=== PATIENT | male | born 1945 | race Caucasian/White ===

== ENCOUNTER 2021-05-01 18:56 | Emergency (ER) | payer MEDICARE ==
[~2021-05-01] VITALS: Ht 175.3 cm; Wt 122.3 kg
--- NOTE | 2021-05-01 19:11 | NUR ---
PT IS NOT COMPLAINING OF NECK PAIN. NO OBVIOUS HEAD TRAUMA. MD AT BEDSIDE ASSESSING PT. MD REMOVED PT'S C-COLLAR.
--- NOTE | 2021-05-01 19:30 | NUR ---
PT HAD A LARGE BOWEL MOVEMENT ON THE BED. HE REPORTS HE WAS HEADED TO THE BATHROOM WHEN HE FELL AT HOME. PT CLEANED UP, BED SHEET CHANGED, PT HAS NO PAIN COMPLAINTS AT PRESENT.
--- NOTE | 2021-05-01 21:25 | NUR ---
TECH IS GAIT TESTING PT
--- NOTE | 2021-05-01 23:13 | NUR ---
CALLED PT'S WITH PT'S PERMISSION. UPDATED HER ON PT'S CONDITION AND LET HER KNOW THAT HE IS BEING DISCHARGED. SHE IS OK WITH US SENDING HIM HOME VIA [facility]. SHE WILL BE WAITING FOR HIM AT HOME.
--- NOTE | 2021-05-01 23:14 | NUR ---
PT HAS PASSED GAIT TEST
[2021-05-01 23:29] VITALS: BP 144/62
[2021-05-04] MEDS ORDERED: METF-1203 PO (18:05)
[2021-05-04] MEDS ORDERED: LOVA40TA2 PO (18:05)
[2021-05-04] MEDS ORDERED: TERA5CAP4 PO (18:05)
[2021-05-04] MEDS ORDERED: GLIM4TAB7 PO (18:05)
[2021-05-04] MEDS ORDERED: LISI40TA13 PO (18:05)
[2021-05-04] MEDS ORDERED: ATEN100T PO (18:05)
[2021-05-04] MEDS ORDERED: AMLO5TAB16 PO (18:05)
[2021-05-04] MEDS ORDERED: ASPI-611 PO (18:05)
[2021-05-08] MEDS ORDERED: PRED10TA23 PO (09:27)
[2021-05-08] MEDS ORDERED: ALBU8.5H17 INH (09:27)
== END 2021-05-01 23:32 | disposition home or self-care (01) ==
LOC: ER 18:56
DX: S60.221A Contusion of right hand, initial encounter (principal); M79.641 Pain in right hand; E78.00 Pure hypercholesterolemia, unspecified; I12.9 Hypertensive chronic kidney disease with stage 1 through stage 4 chronic kidney disease, or unspecified chronic kidney disease; E11.22 Type 2 diabetes mellitus with diabetic chronic kidney disease; N18.9 Chronic kidney disease, unspecified; Z90.89 Acquired absence of other organs; Z86.73 Personal history of transient ischemic attack (TIA), and cerebral infarction without residual deficits; W19.XXXA Unspecified fall, initial encounter; Y93.89 Activity, other specified; Y92.89 Other specified places as the place of occurrence of the external cause; Y99.8 Other external cause status
CPT/HCPCS: 73130; 93005; 99284

== ENCOUNTER 2021-07-05 13:25 | Inpatient (IN) | payer MEDICARE ==
[~2021-07-05] VITALS: Ht 172.7 cm; Wt 126.5 kg
[~2021-07-05 13:25] MED LIST: ALBU8.5H17 INH; AMLO5TAB16 PO; ASPI-611 PO; ATEN100T PO; GLIM4TAB7 PO; LISI40TA13 PO; LOVA40TA2 PO; METF-1203 PO; TERA5CAP4 PO
[2021-07-05 15:11] LABS: BASOPHILS % (AUTO) 0.4 % (0-1); EOSINOPHILS % (AUTO) 0.5 % (0-6); HEMATOCRIT 29.6 % (42.0-52.0); HEMOGLOBIN 9.5 g/dl (14.0-17.9); LYMPHOCYTES # (AUTO) 0.7 X10'3 (1.1-4.8); LYMPHOCYTES % (AUTO) 8.7 % (21-51); MEAN CORPUSCULAR HEMOGLOBIN 27.5 PG (27.0-31.0); MEAN CORPUSCULAR HGB CONC 32.1 g/dL (33.0-36.5); MEAN CORPUSCULAR VOLUME 85.7 FL (78-98); MONOCYTES # (AUTO) 0.3 X10'3 (0-0.9); MONOCYTES % (AUTO) 4.1 % (2-12); NEUTROPHILS # (AUTO) 6.8 X10'3 (1.8-7.7); NEUTROPHILS % (AUTO) 86.3 % (42-75); PLATELET COUNT 84 X10'3 (140-440); RED BLOOD COUNT 3.45 X10'6 (4.70-6.10); RED CELL DISTRIBUTION WIDTH 17.5 % (11.5-14.5); WHITE BLOOD COUNT 7.9 X10'3 (4.5-11.0)
[2021-07-05 15:20] LABS: D-DIMER 0.48 MG/L FEU (0-0.50)
[2021-07-05 15:32] LABS: ALANINE AMINOTRANSFERASE 23 U/L (12-78); ALBUMIN 2.9 G/DL (3.4-5.0); ALBUMIN/GLOBULIN RATIO 0.8 (1.1-1.5); ALKALINE PHOSPHATASE 115 IU/L (46-116); ANION GAP 10 (8-16); ASPARTATE AMINO TRANSFERASE 11 U/L (10-37); BILIRUBIN,TOTAL 0.4 MG/DL (0.1-1.0); CALCIUM 8.6 MG/DL (8.5-10.1); CHLORIDE 102 MMOL/L (99-107); CREATININE 1.48 MG/DL (0.60-1.10); GLUCOSE 199 MG/DL (70-104); MAGNESIUM 1.6 MG/DL (1.5-2.4); POTASSIUM 4.8 MMOL/L (3.5-5.1); SODIUM 140 MMOL/L (135-145); TOTAL CARBON DIOXIDE 28.1 MMOL/L (24-32); TOTAL PROTEIN 6.5 G/DL (6.4-8.2); eGFR 46 ML/MIN
[2021-07-05 15:54] LABS: BLOOD UREA NITROGEN 38 MG/DL (7-18); BUN/CREATININE RATIO 25.7 (5.4-32.0)
[2021-07-05] MEDS ORDERED: CefTRIAXone/D5W-Rocephin 1gm 50 ML IV ONE (15:55)
[2021-07-05 16:37] LABS: C-REACTIVE PROTEIN 7.74 MG/DL (0.0-0.5); LACTATE DEHYDROGENASE 173 U/L (85-227)
[2021-07-05] MEDS ORDERED: HYDROcodone/acetaminophen 10/325mg tab PO PRN (17:40)
[2021-07-05] MEDS ORDERED: ALBUTEROL INHALER 1 PUFF/90 MCG INHALER IH PRN (17:40)
[2021-07-05] MEDS ORDERED: acetaminophen 325mg tablet PO PRN ×2 (17:40)
[2021-07-05] MEDS ORDERED: potassium CL 10mEq/100ml bag 100 ML IV PRN (17:40)
[2021-07-05] MEDS ORDERED: mag hydrox/Alum hydrox/simeth 30ml oral suspension PO PRN (17:40)
[2021-07-05] MEDS ORDERED: bisacodyl 10mg suppository rectal RC PRN (17:40)
[2021-07-05] MEDS ORDERED: HYDROcodone/acetaminophen 5mg/325mg tablet PO PRN (17:40)
[2021-07-05] MEDS ORDERED: morphine 2 MG/ML inj. syringe IV PRN ×2 (17:40)
[2021-07-05] MEDS ORDERED: MESSAGE TO PHARMACY PO ONE (17:40)
[2021-07-05] MEDS ORDERED: dextrose ORAL solution 15 GM/59 ML bottle PO PRN ×2 (17:40)
[2021-07-05] MEDS ORDERED: PERFLUTREN PROTEIN-A MICROSPHR (Optison) 0.22 MG/ML 3ML VIAL IV PRN (17:40)
[2021-07-05] MEDS ORDERED: dexamethasone 4mg/ml inj IV SCH (17:40)
[2021-07-05] MEDS ORDERED: magnesium 2GM in 50ml NS 50 ML IV PRN (17:40)
[2021-07-05] MEDS ORDERED: dextrose 50%-water 50ml dispensing syringe IV PRN ×2 (17:40)
[2021-07-05] MEDS ORDERED: magnesium hydroxide 30ml (MOM) UD suspension PO PRN (17:40)
[2021-07-05] MEDS ORDERED: potassium Cl 20 mEq SR tablet PO PRN ×2 (17:40)
[2021-07-05] MEDS ORDERED: magnesium Cl slow-release 64mg tablet PO PRN (17:40)
[2021-07-05] MEDS ORDERED: magnesium 4gm in 100ml NS 100 ML IV PRN (17:40)
[2021-07-05] MEDS ORDERED: glucagon, human recombinant 1mg kit SUBCUT PRN (17:40)
[2021-07-05] MEDS ORDERED: ondansetron/PF 4mg/2ml inj IV PRN (17:40)
[2021-07-05] MEDS ORDERED: acetaminophen 650mg rectal suppository RC PRN (17:40)
[2021-07-05 18:38] LABS: HEMOGLOBIN A1C 6.6 % (4.5-6.2)
[2021-07-05 18:51] LABS: CLARITY,URINE CLEAR (Clear); COLOR,URINE YELLOW (Yellow); GLUCOSE, URINE NEGATIVE (Neg); KETONES,URINE TRACE mg/dl (Neg); LEUKOCYTE ESTERASE ,URINE NEGATIVE (Neg); NITRITES, URINE NEGATIVE (Neg); OCCULT BLOOD,URINE NEGATIVE (Neg); PROTEIN,URINE NEGATIVE (Neg)
[2021-07-05 18:53] LABS: UA COLLECTION TYPE VOIDED
[2021-07-05] MEDS: azithromycin 250mg tablet PO SCH (19:03)
[2021-07-05] MEDS: dexamethasone inj 6 MG in dextrose 5%-water 100 ML IV SCH (19:04)
[2021-07-05] MEDS: K and/or MAG REPLACEMENT MC SCH (19:50)
[2021-07-05] MEDS: docusate sod 100mg capsule PO SCH (20:00)
[2021-07-05] MEDS: normal saline 1000ml 1,000 ML IV SCH (21:55)
[2021-07-05] MEDS: enoxaparin 40mg/0.4ml syringe SUBCUT SCH (21:58)
--- NOTE | 2021-07-05 22:15 | NUR ---
Report given to nurse on the receiving floor. Patient information discussed and background reviewed.
[2021-07-05 23:30] VITALS: BP 142/78
[2021-07-06] MEDS: insulin glargine (Lantus) pen - multi-dose SQ SCH ×2 (01:56→21:20)
[2021-07-06 02:00] VITALS: BP 138/75
[2021-07-06 06:00] VITALS: BP 89/56
[2021-07-06 07:31] LABS: BASOPHILS % (AUTO) 0.2 % (0-1); EOSINOPHILS % (AUTO) 0 % (0-6); HEMATOCRIT 30.8 % (42.0-52.0); LYMPHOCYTES # (AUTO) 0.4 X10'3 (1.1-4.8); LYMPHOCYTES % (AUTO) 4.6 % (21-51); MEAN CORPUSCULAR HEMOGLOBIN 27.8 PG (27.0-31.0); MEAN CORPUSCULAR HGB CONC 32.4 g/dL (33.0-36.5); MEAN CORPUSCULAR VOLUME 85.7 FL (78-98); MEAN PLATELET VOLUME 9.5 FL (7.4-10.4); MONOCYTES # (AUTO) 0.1 X10'3 (0-0.9); MONOCYTES % (AUTO) 0.7 % (2-12); NEUTROPHILS # (AUTO) 8.3 X10'3 (1.8-7.7); NEUTROPHILS % (AUTO) 94.5 % (42-75); PLATELET COUNT 98 X10'3 (140-440); RED BLOOD COUNT 3.59 X10'6 (4.70-6.10); RED CELL DISTRIBUTION WIDTH 17.5 % (11.5-14.5); WHITE BLOOD COUNT 8.7 X10'3 (4.5-11.0)
[2021-07-06 07:37] LABS: D-DIMER 0.54 MG/L FEU (0-0.50)
[2021-07-06 07:39] LABS: ALANINE AMINOTRANSFERASE 26 U/L (12-78); ALBUMIN 3.1 G/DL (3.4-5.0); ALBUMIN/GLOBULIN RATIO 0.9 (1.1-1.5); ALKALINE PHOSPHATASE 121 IU/L (46-116); ANION GAP 5 (8-16); ASPARTATE AMINO TRANSFERASE 16 U/L (10-37); BILIRUBIN,TOTAL 0.3 MG/DL (0.1-1.0); BLOOD UREA NITROGEN 44 MG/DL (7-18); BUN/CREATININE RATIO 30.1 (5.4-32.0); CALCIUM 8.6 MG/DL (8.5-10.1); CHLORIDE 103 MMOL/L (99-107); CREATININE 1.46 MG/DL (0.60-1.10); GLUCOSE 206 MG/DL (70-104); POTASSIUM 5.8 MMOL/L (3.5-5.1); SODIUM 138 MMOL/L (135-145); TOTAL CARBON DIOXIDE 29.6 MMOL/L (24-32); TOTAL PROTEIN 6.7 G/DL (6.4-8.2); eGFR 47 ML/MIN
[2021-07-06 07:42] LABS: C-REACTIVE PROTEIN 8.51 MG/DL (0.0-0.5); CHOL/HDL RATIO 2.3 (0.00-4.99); CHOLESTEROL 172 MG/DL (0-200); HDL CHOLESTEROL 75 MG/DL (35-60); LACTATE DEHYDROGENASE 195 U/L (85-227); LDL CHOLESTEROL 64 MG/DL (50-100); MAGNESIUM 1.9 MG/DL (1.5-2.4); PHOSPHORUS 5.8 MG/DL (2.3-4.5); TRIGLYCERIDES 84 MG/DL (20-135)
[2021-07-06] MEDS: enoxaparin 40mg/0.4ml syringe SUBCUT SCH ×2 (08:00→20:59)
[2021-07-06] MEDS: dexamethasone inj 6 MG in dextrose 5%-water 100 ML IV SCH ×2 (08:23→20:59)
--- NOTE | 2021-07-06 08:31 | NUR ---
Page to Dr Chowdhury Message: [phone] Chowdhury, platelets were 98 this morning. Do you want me to hold the Lovenox due at 0800? October, RN PCU et [phone]
[2021-07-06] MEDS: azithromycin 250mg tablet PO SCH (08:32)
[2021-07-06] MEDS: K and/or MAG REPLACEMENT MC SCH ×2 (08:34→20:00)
[2021-07-06] MEDS: docusate sod 100mg capsule PO SCH ×2 (08:34→20:58)
[2021-07-06] MEDS: insulin Lispro (HumaLOG) vial - multi-dose SQ SCH ×3 (10:38→21:18)
--- NOTE | 2021-07-06 11:54 | NUR ---
Message to Dr Chowdhury re [facility]: Message: [id number] Joss Chowdhury, FYI, Ekg done this am showed 2nd degree type 1 block. Thanks, October RN PCU ext [phone]
[2021-07-06 15:00] VITALS: BP 136/60
[2021-07-06] MEDS: CefTRIAXone/D5W-Rocephin 1gm 50 ML IV SCH (15:10)
[2021-07-06] MEDS ORDERED: ALBU8.5H17 IH (16:11)
[2021-07-06 18:00] VITALS: BP 133/57
--- NOTE | 2021-07-06 18:41 | NUR ---
Problems reprioritized. Patient report given, questions answered & plan of care reviewed with PAU Espinal.
[2021-07-06 22:00] VITALS: BP 134/55
[2021-07-06] MEDS ORDERED: sodium polystyrene sulfonate 15gm/60ml oral suspension PO ONE (23:05)
[2021-07-07] VITALS (7 sets, daily range): BP systolic 110–143; BP diastolic 50–62
[2021-07-07] MEDS: ALBUTEROL INHALER 1 PUFF/90 MCG INHALER IH SCH ×6 (02:57→21:58)
[2021-07-07 06:06] LABS: BASOPHILS % (AUTO) 0.3 % (0-1); EOSINOPHILS % (AUTO) 0 % (0-6); HEMATOCRIT 29.8 % (42.0-52.0); HEMOGLOBIN 9.5 g/dl (14.0-17.9); LYMPHOCYTES # (AUTO) 0.5 X10'3 (1.1-4.8); LYMPHOCYTES % (AUTO) 5.1 % (21-51); MEAN CORPUSCULAR HEMOGLOBIN 27.6 PG (27.0-31.0); MEAN CORPUSCULAR HGB CONC 31.9 g/dL (33.0-36.5); MEAN CORPUSCULAR VOLUME 86.4 FL (78-98); MEAN PLATELET VOLUME 9.6 FL (7.4-10.4); MONOCYTES # (AUTO) 0.2 X10'3 (0-0.9); NEUTROPHILS # (AUTO) 9.7 X10'3 (1.8-7.7); NEUTROPHILS % (AUTO) 92.6 % (42-75); PLATELET COUNT 125 X10'3 (140-440); RED BLOOD COUNT 3.45 X10'6 (4.70-6.10); RED CELL DISTRIBUTION WIDTH 17.4 % (11.5-14.5); WHITE BLOOD COUNT 10.5 X10'3 (4.5-11.0)
[2021-07-07 06:15] LABS: D-DIMER 0.53 MG/L FEU (0-0.50)
--- NOTE | 2021-07-07 06:16 | NUR ---
Problems reprioritized. pt reprt given, questions answered and plan of care reviewed with PAU Garcias.
[2021-07-07 06:48] LABS: ALANINE AMINOTRANSFERASE 39 U/L (12-78); ALBUMIN 2.9 G/DL (3.4-5.0); ALBUMIN/GLOBULIN RATIO 0.8 (1.1-1.5); ALKALINE PHOSPHATASE 108 IU/L (46-116); ANION GAP 6 (8-16); ASPARTATE AMINO TRANSFERASE 19 U/L (10-37); BILIRUBIN,TOTAL 0.2 MG/DL (0.1-1.0); BLOOD UREA NITROGEN 54 MG/DL (7-18); BUN/CREATININE RATIO 32.3 (5.4-32.0); C-REACTIVE PROTEIN 5.09 MG/DL (0.0-0.5); CALCIUM 8.4 MG/DL (8.5-10.1); CHLORIDE 103 MMOL/L (99-107); CREATININE 1.67 MG/DL (0.60-1.10); GLUCOSE 187 MG/DL (70-104); LACTATE DEHYDROGENASE 158 U/L (85-227); PHOSPHORUS 6.2 MG/DL (2.3-4.5); POTASSIUM 5.7 MMOL/L (3.5-5.1); SODIUM 139 MMOL/L (135-145); TOTAL PROTEIN 6.4 G/DL (6.4-8.2); eGFR 40 ML/MIN
[2021-07-07] MEDS: lactose-reduced food (Ensure Enlive) - 237ml bottle PO SCH ×5 (08:00→18:05)
[2021-07-07] MEDS: K and/or MAG REPLACEMENT MC SCH ×2 (08:00→20:00)
--- NOTE | 2021-07-07 08:42 | NUR ---
Joni consult: Tito easley/ joni 11, skin intact per EMR. Addendum: 07/07/21 at [address] Amended: Links added. Addendum: 07/07/21 at [address] BRITANY has reviewed and approves of above note.
[2021-07-07] MEDS ORDERED: albuterol 2.5 MG/3 ML nebule NEB PRN (08:55)
[2021-07-07] MEDS: enoxaparin 40mg/0.4ml syringe SUBCUT SCH ×2 (10:26→22:03)
[2021-07-07] MEDS: dexamethasone inj 6 MG in dextrose 5%-water 100 ML IV SCH ×2 (10:26→22:03)
[2021-07-07] MEDS: docusate sod 100mg capsule PO SCH ×2 (10:26→22:04)
[2021-07-07] MEDS: azithromycin 250mg tablet PO SCH (10:26)
[2021-07-07] MEDS: furosemide 20 MG/2 ML vial IV SCH ×2 (10:57→22:04)
[2021-07-07] MEDS: atenolol 50mg tablet PO SCH (10:58)
[2021-07-07] MEDS: lisinopril 20mg tablet PO SCH (10:58)
[2021-07-07] MEDS: aspirin 81mg, enteric-coated 1 TAB TABLET.DR PO SCH (10:59)
[2021-07-07] MEDS: atorvastatin 10mg tablet PO SCH (10:59)
[2021-07-07] MEDS: amLODIPine 5mg tablet PO SCH (10:59)
[2021-07-07] MEDS: insulin Lispro (HumaLOG) vial - multi-dose SQ SCH ×2 (11:06→14:56)
--- NOTE | 2021-07-07 13:18 | NUR ---
PRESSURE ULCER EDUCATION: DEFINITION: A pressure ulcer is an area of skin that breaks down when you stay in one position too long. The constant pressure against the skin reduces the blood flow to that area and the affected tissue dies. CAUSES: "Being bedridden or in a wheelchair "Fragile skin "Having a chronic condition, such as diabetes or vascular disease "Inability to move certain parts of your body without assistance "Older age "Incontinence of urine or stool SYMPTOMS: "A reddened area that DOES NOT turn white when pressed on - this can be the beginning of a pressure ulcer "A blister, deep sore or a crater - these can be advanced pressure ulcers FIRST AID: "Relieve the pressure on this area "Keep the area clean and dry "Call your primary doctor if you see any of the above symptoms "DO NOT massage the area "DO NOT use a donut shaped or ring shaped pillow- these actually interfere with the blood flow and cause complications PREVENTION: "Check for pressure ulcers everyday "Change position at least every two hours to relieve pressure "Use items that help relieve pressure- pillows, sheepskin, foam padding, and powders. "Keep skin clean and dry "Eat healthy well balanced meals "Exercise daily IF YOU SEE ANY OF THESE SYMPTOMS WHILE IN THE HOSPITAL - TELL YOUR NURSE IMMEDIATELY. IF YOU SEE ANY OF THESE SYMPTOMS WHILE AT HOME OR HAVE ANY QUESTIONS OR CONCERNS ABOUT PRESSURE ULCERS - CALL YOUR PRIMARY DOCTOR IMMEDIATELY. Addendum: 07/07/21 at 1321 by Yuko Horvath RN Amended: Links added.
--- NOTE | 2021-07-07 15:06 | NUR ---
Sent msg to respiratory that that pt was bumped to 15L high flow after desating to 86%.Pt is now at 95%. No distress noted. Will continue to monitor.
[2021-07-07] MEDS: CefTRIAXone/D5W-Rocephin 1gm 50 ML IV SCH (15:08)
[2021-07-07] MEDS: normal saline 1000ml 1,000 ML IV SCH (17:17)
--- NOTE | 2021-07-07 18:01 | NUR ---
Per Dr. Melgar, ordered Cpap for patient to help with his breathing. Pt states he does not use any breathing devices at home. Will continue to monitor.
--- NOTE | 2021-07-07 18:35 | NUR ---
Problems reprioritized. Patient report given, questions answered & plan of care reviewed with PAU Martino.
[2021-07-07] MEDS: insulin glargine (Lantus) pen - multi-dose SQ SCH (21:59)
[2021-07-07] MEDS: diphenhydrAMINE 25mg capsule PO PRN (22:03)
[2021-07-07] MEDS: terazosin 5mg capsule PO SCH (22:04)
[2021-07-08 02:00] VITALS: BP 117/50
[2021-07-08] MEDS: ALBUTEROL INHALER 1 PUFF/90 MCG INHALER IH SCH ×2 (02:59→07:40)
[2021-07-08 06:00] VITALS: BP 106/37
[2021-07-08 06:18] LABS: BASOPHILS % (AUTO) 0.2 % (0-1); EOSINOPHILS % (AUTO) 0 % (0-6); HEMATOCRIT 27.1 % (42.0-52.0); HEMOGLOBIN 8.5 g/dl (14.0-17.9); LYMPHOCYTES # (AUTO) 0.5 X10'3 (1.1-4.8); LYMPHOCYTES % (AUTO) 6.1 % (21-51); MEAN CORPUSCULAR HEMOGLOBIN 27.5 PG (27.0-31.0); MEAN CORPUSCULAR HGB CONC 31.4 g/dL (33.0-36.5); MEAN CORPUSCULAR VOLUME 87.5 FL (78-98); MEAN PLATELET VOLUME 9.2 FL (7.4-10.4); MONOCYTES # (AUTO) 0.2 X10'3 (0-0.9); MONOCYTES % (AUTO) 2.4 % (2-12); NEUTROPHILS # (AUTO) 7.5 X10'3 (1.8-7.7); NEUTROPHILS % (AUTO) 91.3 % (42-75); PLATELET COUNT 113 X10'3 (140-440); RED CELL DISTRIBUTION WIDTH 17.4 % (11.5-14.5); WHITE BLOOD COUNT 8.2 X10'3 (4.5-11.0)
[2021-07-08 06:23] LABS: D-DIMER 0.43 MG/L FEU (0-0.50)
[2021-07-08 06:54] LABS: ALANINE AMINOTRANSFERASE 46 U/L (12-78); ALBUMIN 2.7 G/DL (3.4-5.0); ALBUMIN/GLOBULIN RATIO 0.9 (1.1-1.5); ALKALINE PHOSPHATASE 98 IU/L (46-116); ANION GAP 4 (8-16); ASPARTATE AMINO TRANSFERASE 15 U/L (10-37); BILIRUBIN,TOTAL 0.1 MG/DL (0.1-1.0); BLOOD UREA NITROGEN 67 MG/DL (7-18); BUN/CREATININE RATIO 38.7 (5.4-32.0); C-REACTIVE PROTEIN 2.28 MG/DL (0.0-0.5); CALCIUM 7.8 MG/DL (8.5-10.1); CHLORIDE 103 MMOL/L (99-107); CREATININE 1.73 MG/DL (0.60-1.10); GLUCOSE 216 MG/DL (70-104); LACTATE DEHYDROGENASE 137 U/L (85-227); MAGNESIUM 2.2 MG/DL (1.5-2.4); PHOSPHORUS 5.5 MG/DL (2.3-4.5); POTASSIUM 5.4 MMOL/L (3.5-5.1); SODIUM 140 MMOL/L (135-145); TOTAL CARBON DIOXIDE 33.1 MMOL/L (24-32); TOTAL PROTEIN 5.7 G/DL (6.4-8.2); eGFR 38 ML/MIN
--- NOTE | 2021-07-08 07:05 | NUR ---
Patient in room PCU 3020. I have received report from Gunner and had the opportunity to ask questions and assume patient care.
[2021-07-08] MEDS: K and/or MAG REPLACEMENT MC SCH ×2 (08:00→20:00)
[2021-07-08] MEDS: azithromycin 250mg tablet PO SCH (09:29)
[2021-07-08] MEDS: docusate sod 100mg capsule PO SCH ×2 (09:29→21:13)
[2021-07-08] MEDS: atorvastatin 10mg tablet PO SCH (09:30)
[2021-07-08] MEDS: enoxaparin 40mg/0.4ml syringe SUBCUT SCH ×2 (09:30→21:12)
[2021-07-08] MEDS: atenolol 50mg tablet PO SCH (09:31)
[2021-07-08] MEDS: lisinopril 20mg tablet PO SCH (09:31)
[2021-07-08] MEDS: amLODIPine 5mg tablet PO SCH (09:32)
[2021-07-08] MEDS: furosemide 20 MG/2 ML vial IV SCH ×2 (09:32→21:13)
[2021-07-08] MEDS: aspirin 81mg, enteric-coated 1 TAB TABLET.DR PO SCH (09:32)
[2021-07-08] MEDS: dexamethasone inj 6 MG in dextrose 5%-water 100 ML IV SCH ×2 (09:34→21:14)
[2021-07-08] MEDS: insulin Lispro (HumaLOG) vial - multi-dose SQ SCH ×2 (09:42→14:47)
[2021-07-08] MEDS: lactose-reduced food (Ensure Enlive) - 237ml bottle PO SCH ×2 (09:42→18:35)
[2021-07-08 11:00] VITALS: BP 80/40
[2021-07-08] MEDS: albuterol 2.5 MG/3 ML nebule NEB SCH ×4 (11:09→23:29)
[2021-07-08 15:00] VITALS: BP 87/56
[2021-07-08] MEDS: CefTRIAXone/D5W-Rocephin 1gm 50 ML IV SCH (17:21)
[2021-07-08 18:00] VITALS: BP 87/56
--- NOTE | 2021-07-08 18:22 | NUR ---
Problems reprioritized. Patient report given, questions answered & plan of care reviewed with Gunner.
[2021-07-08] MEDS: terazosin 5mg capsule PO SCH (21:13)
[2021-07-08] MEDS: insulin glargine (Lantus) pen - multi-dose SQ SCH (21:30)
[2021-07-08 22:00] VITALS: BP 128/41
[2021-07-09 02:00] VITALS: BP 151/59
[2021-07-09] MEDS: albuterol 2.5 MG/3 ML nebule NEB SCH ×6 (03:15→22:53)
--- NOTE | 2021-07-09 06:18 | NUR ---
Patient in room PCU 3020. I have received report from Gunner and had the opportunity to ask questions and assume patient care.
[2021-07-09 06:48] LABS: BASOPHILS % (AUTO) 0.1 % (0-1); EOSINOPHILS % (AUTO) 0.1 % (0-6); HEMOGLOBIN 8.5 g/dl (14.0-17.9); LYMPHOCYTES # (AUTO) 0.6 X10'3 (1.1-4.8); LYMPHOCYTES % (AUTO) 7.6 % (21-51); MEAN CORPUSCULAR HEMOGLOBIN 27.4 PG (27.0-31.0); MEAN CORPUSCULAR HGB CONC 31.5 g/dL (33.0-36.5); MEAN CORPUSCULAR VOLUME 86.9 FL (78-98); MEAN PLATELET VOLUME 9.6 FL (7.4-10.4); MONOCYTES # (AUTO) 0.2 X10'3 (0-0.9); MONOCYTES % (AUTO) 3.4 % (2-12); NEUTROPHILS # (AUTO) 6.4 X10'3 (1.8-7.7); NEUTROPHILS % (AUTO) 88.8 % (42-75); PLATELET COUNT 112 X10'3 (140-440); RED BLOOD COUNT 3.11 X10'6 (4.70-6.10); RED CELL DISTRIBUTION WIDTH 17.9 % (11.5-14.5); WHITE BLOOD COUNT 7.2 X10'3 (4.5-11.0)
[2021-07-09 06:57] LABS: D-DIMER 0.44 MG/L FEU (0-0.50)
[2021-07-09 07:00] VITALS: BP 185/137
[2021-07-09 07:19] LABS: ALANINE AMINOTRANSFERASE 37 U/L (12-78); ALBUMIN 2.7 G/DL (3.4-5.0); ALBUMIN/GLOBULIN RATIO 0.9 (1.1-1.5); ALKALINE PHOSPHATASE 98 IU/L (46-116); ANION GAP 4 (8-16); ASPARTATE AMINO TRANSFERASE 9 U/L (10-37); BILIRUBIN,TOTAL 0.1 MG/DL (0.1-1.0); BLOOD UREA NITROGEN 83 MG/DL (7-18); BUN/CREATININE RATIO 46.4 (5.4-32.0); C-REACTIVE PROTEIN 1.36 MG/DL (0.0-0.5); CALCIUM 8.3 MG/DL (8.5-10.1); CHLORIDE 102 MMOL/L (99-107); CREATININE 1.79 MG/DL (0.60-1.10); GLUCOSE 235 MG/DL (70-104); LACTATE DEHYDROGENASE 133 U/L (85-227); MAGNESIUM 2.5 MG/DL (1.5-2.4); PHOSPHORUS 5.3 MG/DL (2.3-4.5); POTASSIUM 5.8 MMOL/L (3.5-5.1); SODIUM 138 MMOL/L (135-145); TOTAL CARBON DIOXIDE 32.2 MMOL/L (24-32); TOTAL PROTEIN 5.8 G/DL (6.4-8.2); eGFR 37 ML/MIN
[2021-07-09] MEDS: furosemide 20 MG/2 ML vial IV SCH ×2 (07:23→19:48)
[2021-07-09] MEDS: dexamethasone inj 6 MG in dextrose 5%-water 100 ML IV SCH ×2 (07:25→19:48)
[2021-07-09] MEDS: aspirin 81mg, enteric-coated 1 TAB TABLET.DR PO SCH (07:25)
[2021-07-09] MEDS: docusate sod 100mg capsule PO SCH ×2 (07:25→19:48)
[2021-07-09] MEDS: atorvastatin 10mg tablet PO SCH (07:26)
[2021-07-09] MEDS: atenolol 50mg tablet PO SCH (07:27)
[2021-07-09] MEDS: amLODIPine 5mg tablet PO SCH (07:27)
[2021-07-09] MEDS: lisinopril 20mg tablet PO SCH (07:28)
[2021-07-09] MEDS: enoxaparin 40mg/0.4ml syringe SUBCUT SCH ×2 (07:28→19:49)
[2021-07-09] MEDS: azithromycin 250mg tablet PO SCH (07:28)
[2021-07-09] MEDS: K and/or MAG REPLACEMENT MC SCH ×2 (07:41→18:45)
[2021-07-09] MEDS: lactose-reduced food (Ensure Enlive) - 237ml bottle PO SCH ×3 (08:17→18:08)
[2021-07-09] MEDS ORDERED: sodium polystyrene sulfonate 15gm/60ml oral suspension PO ONE (09:15)
[2021-07-09] MEDS: insulin Lispro (HumaLOG) vial - multi-dose SQ SCH ×3 (09:34→19:43)
--- NOTE | 2021-07-09 09:41 | NUR ---
Initial: Pt admit for acute respiratory failure likely d/t PNA, positive for COVID this admit. Pt on a heart healthy diet and overall eating well for age with average 63% PO intake of meals. Noted pt receiving an Ensure Enlive TIDWM and pt with 100% PO intake of all ONS with the exception of 50% PO intake of one ONS. Overall pt meeting estimated nutrient needs at this time. Noted patient's K, mag, and Phos are elevated. Will continue to monitor to assess need for renal diet. LBM 2/7 per I&O, receiving routine bowel care BID. No nutrition intervention implemented at this time. Will continue to follow and make recommendations as appropriate. Recommendations: 1) Liberalize to regular diet and utilize glycemic protocol for BG management; lipid panel WNL with A1c 6.6% 2) Monitor renal status and need for renal diet 3) Ensure Enlive TIDWM 4) Routine bowel care 5) Weekly scaled weights Addendum: 07/09/21 at [address] Amended: Links added.
[2021-07-09 10:00] VITALS: BP 185/137
[2021-07-09 11:00] VITALS: BP 86/30
[2021-07-09] MEDS: nystatin 15 GM powder TP SCH ×2 (13:05→21:01)
[2021-07-09] MEDS: CefTRIAXone/D5W-Rocephin 1gm 50 ML IV SCH (14:25)
[2021-07-09 15:00] VITALS: BP 104/61
[2021-07-09] MEDS: normal saline 1000ml 1,000 ML IV SCH (17:40)
[2021-07-09 18:00] VITALS: BP 152/65
[2021-07-09] MEDS: diphenhydrAMINE 25mg capsule PO PRN (19:56)
[2021-07-09] MEDS: terazosin 5mg capsule PO SCH (19:56)
[2021-07-09] MEDS: insulin glargine (Lantus) pen - multi-dose SQ SCH (21:01)
[2021-07-10 02:00] VITALS: BP 139/61
[2021-07-10] MEDS: albuterol 2.5 MG/3 ML nebule NEB SCH ×6 (02:35→23:49)
[2021-07-10 06:13] LABS: BASOPHILS % (AUTO) 0.3 % (0-1); EOSINOPHILS % (AUTO) 0 % (0-6); HEMATOCRIT 25.2 % (42.0-52.0); LYMPHOCYTES # (AUTO) 0.5 X10'3 (1.1-4.8); LYMPHOCYTES % (AUTO) 7.9 % (21-51); MEAN CORPUSCULAR HEMOGLOBIN 27.3 PG (27.0-31.0); MEAN CORPUSCULAR HGB CONC 31.9 g/dL (33.0-36.5); MEAN CORPUSCULAR VOLUME 85.6 FL (78-98); MEAN PLATELET VOLUME 9.8 FL (7.4-10.4); MONOCYTES # (AUTO) 0.2 X10'3 (0-0.9); MONOCYTES % (AUTO) 2.7 % (2-12); NEUTROPHILS # (AUTO) 6.1 X10'3 (1.8-7.7); NEUTROPHILS % (AUTO) 89.1 % (42-75); PLATELET COUNT 109 X10'3 (140-440); RED BLOOD COUNT 2.94 X10'6 (4.70-6.10); RED CELL DISTRIBUTION WIDTH 17.6 % (11.5-14.5); WHITE BLOOD COUNT 6.8 X10'3 (4.5-11.0)
[2021-07-10 06:29] LABS: D-DIMER 0.49 MG/L FEU (0-0.50)
[2021-07-10 06:41] LABS: ALANINE AMINOTRANSFERASE 34 U/L (12-78); ALBUMIN 2.5 G/DL (3.4-5.0); ALBUMIN/GLOBULIN RATIO 0.9 (1.1-1.5); ALKALINE PHOSPHATASE 80 IU/L (46-116); ANION GAP 2 (8-16); ASPARTATE AMINO TRANSFERASE 9 U/L (10-37); BILIRUBIN,TOTAL 0.1 MG/DL (0.1-1.0); BLOOD UREA NITROGEN 90 MG/DL (7-18); BUN/CREATININE RATIO 54.9 (5.4-32.0); C-REACTIVE PROTEIN 0.75 MG/DL (0.0-0.5); CALCIUM 8.3 MG/DL (8.5-10.1); CHLORIDE 103 MMOL/L (99-107); CREATININE 1.64 MG/DL (0.60-1.10); GLUCOSE 159 MG/DL (70-104); LACTATE DEHYDROGENASE 134 U/L (85-227); MAGNESIUM 2.5 MG/DL (1.5-2.4); PHOSPHORUS 5.1 MG/DL (2.3-4.5); POTASSIUM 5.5 MMOL/L (3.5-5.1); SODIUM 139 MMOL/L (135-145); TOTAL CARBON DIOXIDE 34.4 MMOL/L (24-32); TOTAL PROTEIN 5.3 G/DL (6.4-8.2); eGFR 41 ML/MIN
--- NOTE | 2021-07-10 06:41 | NUR ---
Patient in room PCU 3020. I have received report from Gunner and had the opportunity to ask questions and assume patient care.
[2021-07-10 07:00] VITALS: BP 153/54
[2021-07-10] MEDS: K and/or MAG REPLACEMENT MC SCH ×2 (08:00→20:00)
[2021-07-10] MEDS: azithromycin 250mg tablet PO SCH (08:28)
[2021-07-10] MEDS: enoxaparin 40mg/0.4ml syringe SUBCUT SCH ×2 (08:28→20:12)
[2021-07-10] MEDS: nystatin 15 GM powder TP SCH ×3 (08:28→20:20)
[2021-07-10] MEDS: furosemide 20 MG/2 ML vial IV SCH ×2 (08:28→20:13)
[2021-07-10] MEDS: atenolol 50mg tablet PO SCH (08:29)
[2021-07-10] MEDS: docusate sod 100mg capsule PO SCH ×2 (08:30→20:13)
[2021-07-10] MEDS: dexamethasone inj 6 MG in dextrose 5%-water 100 ML IV SCH ×2 (08:30→20:13)
[2021-07-10] MEDS: lisinopril 20mg tablet PO SCH (08:30)
[2021-07-10] MEDS: aspirin 81mg, enteric-coated 1 TAB TABLET.DR PO SCH (08:30)
[2021-07-10] MEDS: atorvastatin 10mg tablet PO SCH (08:30)
[2021-07-10] MEDS: amLODIPine 5mg tablet PO SCH (08:30)
[2021-07-10] MEDS: lactose-reduced food (Ensure Enlive) - 237ml bottle PO SCH ×3 (08:30→18:04)
[2021-07-10] MEDS: insulin Lispro (HumaLOG) vial - multi-dose SQ SCH ×2 (09:43→20:17)
[2021-07-10 11:00] VITALS: BP 130/55
[2021-07-10 15:00] VITALS: BP 140/58
[2021-07-10] MEDS: CefTRIAXone/D5W-Rocephin 1gm 50 ML IV SCH (16:29)
--- NOTE | 2021-07-10 16:31 | NUR ---
Patient was not medicated for 1200 blood sugar of 261mg/dl due to lunch tray not received till after 1500 and he finished eating at 1605 which was almost time for the next blood sugar check time. Plan of care will continue.
[2021-07-10 18:00] VITALS: BP 141/58
--- NOTE | 2021-07-10 18:37 | NUR ---
Problems reprioritized. Patient report given, questions answered & plan of care reviewed with Yajaira.
[2021-07-10] MEDS: terazosin 5mg capsule PO SCH (20:13)
[2021-07-10] MEDS: insulin glargine (Lantus) pen - multi-dose SQ SCH (20:19)
[2021-07-11 02:00] VITALS: BP 138/53
[2021-07-11] MEDS: albuterol 2.5 MG/3 ML nebule NEB SCH ×6 (03:26→23:33)
[2021-07-11 06:00] VITALS: BP 158/59
[2021-07-11] MEDS: lactose-reduced food (Ensure Enlive) - 237ml bottle PO SCH ×3 (08:00→18:14)
[2021-07-11] MEDS: K and/or MAG REPLACEMENT MC SCH ×2 (08:00→20:00)
[2021-07-11] MEDS: dexamethasone inj 6 MG in dextrose 5%-water 100 ML IV SCH ×2 (08:53→20:06)
[2021-07-11] MEDS: enoxaparin 40mg/0.4ml syringe SUBCUT SCH ×2 (08:55→19:58)
[2021-07-11] MEDS: furosemide 20 MG/2 ML vial IV SCH ×2 (08:58→19:59)
[2021-07-11] MEDS: docusate sod 100mg capsule PO SCH ×2 (08:58→19:58)
[2021-07-11] MEDS: amLODIPine 5mg tablet PO SCH (08:59)
[2021-07-11] MEDS: atenolol 50mg tablet PO SCH (09:00)
[2021-07-11] MEDS: azithromycin 250mg tablet PO SCH (09:00)
[2021-07-11] MEDS: lisinopril 20mg tablet PO SCH (09:00)
[2021-07-11] MEDS: atorvastatin 10mg tablet PO SCH (09:01)
[2021-07-11] MEDS: aspirin 81mg, enteric-coated 1 TAB TABLET.DR PO SCH (09:01)
[2021-07-11] MEDS: nystatin 15 GM powder TP SCH ×3 (09:03→20:16)
[2021-07-11] MEDS: insulin Lispro (HumaLOG) vial - multi-dose SQ SCH ×2 (09:18→13:38)
[2021-07-11 11:00] VITALS: BP 129/51
[2021-07-11 15:00] VITALS: BP 144/55
[2021-07-11] MEDS: CefTRIAXone/D5W-Rocephin 1gm 50 ML IV SCH (16:07)
--- NOTE | 2021-07-11 18:49 | NUR ---
Problems reprioritized. Patient report given, questions answered & plan of care reviewed with Malika.
[2021-07-11 19:00] VITALS: BP 148/58
[2021-07-11] MEDS: terazosin 5mg capsule PO SCH (20:16)
[2021-07-11] MEDS: insulin glargine (Lantus) pen - multi-dose SQ SCH (21:00)
[2021-07-12] VITALS: BP 139/55
[2021-07-12 02:00] VITALS: BP 138/59
[2021-07-12] MEDS: albuterol 2.5 MG/3 ML nebule NEB SCH ×6 (03:11→23:13)
[2021-07-12 06:00] VITALS: BP 129/49
--- NOTE | 2021-07-12 06:13 | NUR ---
Patient AOX3 He is incont of B/B. He has a BM times 2. Patient denies pain
[2021-07-12] MEDS: lactose-reduced food (Ensure Enlive) - 237ml bottle PO SCH ×3 (08:00→18:00)
[2021-07-12] MEDS: K and/or MAG REPLACEMENT MC SCH (08:00)
[2021-07-12] MEDS: azithromycin 250mg tablet PO SCH (09:17)
[2021-07-12] MEDS: lisinopril 20mg tablet PO SCH (09:18)
[2021-07-12] MEDS: nystatin 15 GM powder TP SCH ×3 (09:20→19:32)
[2021-07-12] MEDS: aspirin 81mg, enteric-coated 1 TAB TABLET.DR PO SCH (09:20)
[2021-07-12] MEDS: amLODIPine 5mg tablet PO SCH (09:20)
[2021-07-12] MEDS: atenolol 50mg tablet PO SCH (09:20)
[2021-07-12] MEDS: atorvastatin 10mg tablet PO SCH (09:20)
[2021-07-12] MEDS: docusate sod 100mg capsule PO SCH ×2 (09:21→19:32)
[2021-07-12] MEDS: dexamethasone inj 6 MG in dextrose 5%-water 100 ML IV SCH ×2 (09:21→19:31)
[2021-07-12] MEDS: enoxaparin 40mg/0.4ml syringe SUBCUT SCH ×2 (09:30→19:31)
[2021-07-12] MEDS: furosemide 20 MG/2 ML vial IV SCH ×2 (09:31→19:32)
[2021-07-12 11:00] VITALS: BP 126/48
[2021-07-12] MEDS: insulin Lispro (HumaLOG) vial - multi-dose SQ SCH ×3 (11:05→21:30)
[2021-07-12] MEDS: CefTRIAXone/D5W-Rocephin 1gm 50 ML IV SCH (15:34)
[2021-07-12 17:52] VITALS: BP 127/63
--- NOTE | 2021-07-12 18:37 | NUR ---
Problems reprioritized. Patient report given, questions answered & plan of care reviewed with Trena.
[2021-07-12] MEDS: terazosin 5mg capsule PO SCH (19:32)
[2021-07-12] MEDS: insulin glargine (Lantus) pen - multi-dose SQ SCH (21:31)
[2021-07-13 02:00] VITALS: BP 98/53
[2021-07-13] MEDS: albuterol 2.5 MG/3 ML nebule NEB SCH ×6 (02:57→22:39)
[2021-07-13 06:00] VITALS: BP 116/71
[2021-07-13] MEDS: atenolol 50mg tablet PO SCH (07:13)
[2021-07-13] MEDS: lisinopril 20mg tablet PO SCH (07:17)
[2021-07-13] MEDS: aspirin 81mg, enteric-coated 1 TAB TABLET.DR PO SCH (07:18)
[2021-07-13] MEDS: docusate sod 100mg capsule PO SCH ×2 (07:18→19:44)
[2021-07-13] MEDS: amLODIPine 5mg tablet PO SCH (07:18)
[2021-07-13] MEDS: furosemide 20 MG/2 ML vial IV SCH ×2 (07:18→19:44)
[2021-07-13] MEDS: atorvastatin 10mg tablet PO SCH (07:18)
[2021-07-13] MEDS: dexamethasone inj 6 MG in dextrose 5%-water 100 ML IV SCH ×2 (07:19→19:44)
[2021-07-13] MEDS: azithromycin 250mg tablet PO SCH (07:19)
[2021-07-13] MEDS: enoxaparin 40mg/0.4ml syringe SUBCUT SCH ×2 (07:19→19:44)
[2021-07-13] MEDS: nystatin 15 GM powder TP SCH ×3 (07:20→19:50)
[2021-07-13] MEDS: K and/or MAG REPLACEMENT MC SCH ×2 (08:00→20:00)
[2021-07-13] MEDS: lactose-reduced food (Ensure Enlive) - 237ml bottle PO SCH ×4 (08:00→19:08)
[2021-07-13] MEDS: insulin Lispro (HumaLOG) vial - multi-dose SQ SCH ×4 (09:25→21:31)
--- NOTE | 2021-07-13 09:53 | NUR ---
no lab page to PAGER ID: [phone] MESSAGE: Joss White 3020 doesn't have labs this morning. Not sure if they were needed. Alix CHAMBERS
[2021-07-13 11:00] VITALS: BP 134/49
[2021-07-13] MEDS ORDERED: guaiFENesin 200 MG/10 ML oral syrup UD cup PO PRN (14:55)
--- NOTE | 2021-07-13 14:56 | NUR ---
Verbal order Robitussin 100mg q6hrs for pt cough per Dr. Melgar telephone order. . Alix Click PCU
[2021-07-13 15:00] VITALS: BP 119/47
[2021-07-13] MEDS: CefTRIAXone/D5W-Rocephin 1gm 50 ML IV SCH (15:08)
[2021-07-13 16:14] LABS: OCCULT BLOOD STOOL NEGATIVE (Neg)
[2021-07-13] MEDS: terazosin 5mg capsule PO SCH (19:44)
[2021-07-13] MEDS: insulin glargine (Lantus) pen - multi-dose SQ SCH (21:30)
[2021-07-13 22:00] VITALS: BP 116/38
[2021-07-14 02:00] VITALS: BP 141/51
[2021-07-14] MEDS: albuterol 2.5 MG/3 ML nebule NEB SCH ×6 (02:49→23:10)
--- NOTE | 2021-07-14 05:47 | NUR ---
no new issues observed through the night. Patient kept his bipap on all night
[2021-07-14] MEDS: K and/or MAG REPLACEMENT MC SCH ×2 (08:00→20:00)
[2021-07-14] MEDS: amLODIPine 5mg tablet PO SCH (08:19)
[2021-07-14] MEDS: lisinopril 20mg tablet PO SCH (08:20)
[2021-07-14] MEDS: atorvastatin 10mg tablet PO SCH (08:20)
[2021-07-14] MEDS: aspirin 81mg, enteric-coated 1 TAB TABLET.DR PO SCH (08:20)
[2021-07-14] MEDS: docusate sod 100mg capsule PO SCH ×2 (08:20→19:41)
[2021-07-14] MEDS: azithromycin 250mg tablet PO SCH (08:20)
[2021-07-14] MEDS: atenolol 50mg tablet PO SCH (08:20)
[2021-07-14] MEDS: dexamethasone inj 6 MG in dextrose 5%-water 100 ML IV SCH ×2 (08:21→19:41)
[2021-07-14] MEDS: nystatin 15 GM powder TP SCH ×3 (08:21→21:00)
[2021-07-14] MEDS: furosemide 20 MG/2 ML vial IV SCH ×2 (08:21→19:41)
[2021-07-14] MEDS: enoxaparin 40mg/0.4ml syringe SUBCUT SCH ×2 (08:22→19:41)
[2021-07-14] MEDS: insulin Lispro (HumaLOG) vial - multi-dose SQ SCH ×3 (10:21→22:00)
[2021-07-14 10:25] LABS: BASOPHILS % (AUTO) 0.1 % (0-1); EOSINOPHILS % (AUTO) 0.3 % (0-6); HEMATOCRIT 30.4 % (42.0-52.0); HEMOGLOBIN 9.8 g/dl (14.0-17.9); LYMPHOCYTES # (AUTO) 0.7 X10'3 (1.1-4.8); LYMPHOCYTES % (AUTO) 8.5 % (21-51); MEAN CORPUSCULAR HEMOGLOBIN 27.4 PG (27.0-31.0); MEAN CORPUSCULAR HGB CONC 32.1 g/dL (33.0-36.5); MEAN CORPUSCULAR VOLUME 85.5 FL (78-98); MEAN PLATELET VOLUME 10.1 FL (7.4-10.4); MONOCYTES # (AUTO) 0.5 X10'3 (0-0.9); NEUTROPHILS # (AUTO) 6.8 X10'3 (1.8-7.7); NEUTROPHILS % (AUTO) 85.1 % (42-75); PLATELET COUNT 136 X10'3 (140-440); RED BLOOD COUNT 3.55 X10'6 (4.70-6.10)
[2021-07-14 10:36] LABS: ALANINE AMINOTRANSFERASE 40 U/L (12-78); ALBUMIN 2.8 G/DL (3.4-5.0); ALBUMIN/GLOBULIN RATIO 0.9 (1.1-1.5); ANION GAP 1 (8-16); ASPARTATE AMINO TRANSFERASE 19 U/L (10-37); BILIRUBIN,TOTAL 0.2 MG/DL (0.1-1.0); BLOOD UREA NITROGEN 105 MG/DL (7-18); CALCIUM 8.6 MG/DL (8.5-10.1); CHLORIDE 96 MMOL/L (99-107); CREATININE 1.59 MG/DL (0.60-1.10); GLUCOSE 329 MG/DL (70-104); POTASSIUM 5.5 MMOL/L (3.5-5.1); SODIUM 134 MMOL/L (135-145); TOTAL CARBON DIOXIDE 37.4 MMOL/L (24-32); eGFR 42 ML/MIN
[2021-07-14 11:00] VITALS: BP 126/61
[2021-07-14 11:12] LABS: ALKALINE PHOSPHATASE 83 IU/L (46-116)
[2021-07-14] MEDS: lactose-reduced food (Ensure Enlive) - 237ml bottle PO SCH (13:00)
[2021-07-14 15:00] VITALS: BP 153/62
--- NOTE | 2021-07-14 15:23 | NUR ---
Reassessment: Pt continues on Heart Healthy diet w/ mostly 75-100% intake of meals and ~78% of ONS meeting nutritional needs at this time. May consider changing to Renal diet as K and Phos seem to be elevated as well as BUN and creatinine. Recommend decreasing ONS frequency to Once daily as pt mostly meeting needs through meals alone. Pt currently on 7L oxygen and wears BiPAP at night per documentation. LBM 07/13 receiving routine colace. Will continue to monitor. Recommendations: 1) Consider Renal diet and utilize glycemic protocol for BG management; lipid panel WNL with A1c 6.6% 2) Ensure Enlive TIDWM; consider decreasing frequency 3) Routine bowel care 4) Weekly scaled weights Addendum: 07/14/21 at [address] Amended: Links added.
[2021-07-14] MEDS: CefTRIAXone/D5W-Rocephin 1gm 50 ML IV SCH (17:44)
[2021-07-14 18:00] VITALS: BP 162/54
[2021-07-14] MEDS: terazosin 5mg capsule PO SCH (19:41)
[2021-07-14] MEDS: insulin glargine (Lantus) pen - multi-dose SQ SCH (21:59)
[2021-07-14 22:00] VITALS: BP 149/56
[2021-07-15 02:00] VITALS: BP 149/59
[2021-07-15] MEDS: albuterol 2.5 MG/3 ML nebule NEB SCH ×6 (02:35→23:55)
[2021-07-15 06:00] VITALS: BP 142/60
[2021-07-15] MEDS: K and/or MAG REPLACEMENT MC SCH ×2 (08:00→19:09)
[2021-07-15] MEDS: dexamethasone inj 6 MG in dextrose 5%-water 100 ML IV SCH ×2 (08:01→20:48)
[2021-07-15] MEDS: lisinopril 20mg tablet PO SCH (08:04)
[2021-07-15] MEDS: atorvastatin 10mg tablet PO SCH (08:04)
[2021-07-15] MEDS: amLODIPine 5mg tablet PO SCH (08:04)
[2021-07-15] MEDS: atenolol 50mg tablet PO SCH (08:05)
[2021-07-15] MEDS: nystatin 15 GM powder TP SCH ×3 (08:06→21:02)
[2021-07-15] MEDS: aspirin 81mg, enteric-coated 1 TAB TABLET.DR PO SCH (08:06)
[2021-07-15] MEDS: furosemide 20 MG/2 ML vial IV SCH (08:06)
[2021-07-15] MEDS: enoxaparin 40mg/0.4ml syringe SUBCUT SCH ×2 (08:06→19:07)
[2021-07-15] MEDS: docusate sod 100mg capsule PO SCH ×2 (08:06→19:07)
[2021-07-15] MEDS ORDERED: sodium polystyrene sulfonate 15gm/60ml oral suspension PO ONE ×2 (09:25→17:45)
[2021-07-15] MEDS: insulin Lispro (HumaLOG) vial - multi-dose SQ SCH ×3 (09:37→19:03)
[2021-07-15 11:00] VITALS: BP 120/52
[2021-07-15 15:00] VITALS: BP 126/53
[2021-07-15] MEDS: CefTRIAXone/D5W-Rocephin 1gm 50 ML IV SCH (16:57)
[2021-07-15 18:00] VITALS: BP 132/41
[2021-07-15] MEDS: lactose-reduced food (Ensure Enlive) - 237ml bottle PO SCH (18:00)
[2021-07-15] MEDS: terazosin 5mg capsule PO SCH (20:49)
[2021-07-15] MEDS: insulin glargine (Lantus) pen - multi-dose SQ SCH (21:02)
[2021-07-15 22:00] VITALS: BP 115/50
[2021-07-16 02:00] VITALS: BP 111/56
[2021-07-16] MEDS: albuterol 2.5 MG/3 ML nebule NEB SCH ×6 (03:24→23:11)
[2021-07-16 06:00] VITALS: BP 152/61
[2021-07-16] MEDS: K and/or MAG REPLACEMENT MC SCH ×2 (08:00→18:33)
[2021-07-16] MEDS: dexamethasone inj 6 MG in dextrose 5%-water 100 ML IV SCH ×2 (08:00→19:04)
[2021-07-16] MEDS: lactose-reduced food (Ensure Enlive) - 237ml bottle PO SCH ×2 (08:00→18:28)
[2021-07-16] MEDS: furosemide 20 MG/2 ML vial IV SCH ×2 (08:00→08:43)
[2021-07-16] MEDS: nystatin 15 GM powder TP SCH ×3 (08:41→21:40)
[2021-07-16] MEDS: enoxaparin 40mg/0.4ml syringe SUBCUT SCH (08:41)
[2021-07-16] MEDS: amLODIPine 5mg tablet PO SCH (08:42)
[2021-07-16] MEDS: atorvastatin 10mg tablet PO SCH (08:42)
[2021-07-16] MEDS: aspirin 81mg, enteric-coated 1 TAB TABLET.DR PO SCH (08:42)
[2021-07-16] MEDS: lisinopril 20mg tablet PO SCH (08:42)
[2021-07-16] MEDS: atenolol 50mg tablet PO SCH (08:43)
[2021-07-16] MEDS: docusate sod 100mg capsule PO SCH ×2 (08:43→19:04)
[2021-07-16] MEDS: insulin Lispro (HumaLOG) vial - multi-dose SQ SCH ×2 (08:46→18:57)
[2021-07-16 09:50] LABS: BASOPHILS % (AUTO) 0.1 % (0-1); EOSINOPHILS % (AUTO) 0.3 % (0-6); HEMATOCRIT 29.9 % (42.0-52.0); HEMOGLOBIN 9.4 g/dl (14.0-17.9); LYMPHOCYTES # (AUTO) 0.7 X10'3 (1.1-4.8); LYMPHOCYTES % (AUTO) 7.3 % (21-51); MEAN CORPUSCULAR HGB CONC 31.5 g/dL (33.0-36.5); MEAN CORPUSCULAR VOLUME 85.7 FL (78-98); MEAN PLATELET VOLUME 10.2 FL (7.4-10.4); MONOCYTES # (AUTO) 0.6 X10'3 (0-0.9); MONOCYTES % (AUTO) 5.6 % (2-12); NEUTROPHILS # (AUTO) 8.8 X10'3 (1.8-7.7); NEUTROPHILS % (AUTO) 86.7 % (42-75); PLATELET COUNT 162 X10'3 (140-440); RED BLOOD COUNT 3.49 X10'6 (4.70-6.10); RED CELL DISTRIBUTION WIDTH 17.7 % (11.5-14.5); WHITE BLOOD COUNT 10.1 X10'3 (4.5-11.0)
[2021-07-16 10:47] LABS: ALANINE AMINOTRANSFERASE 40 U/L (12-78); ALBUMIN 2.7 G/DL (3.4-5.0); ALBUMIN/GLOBULIN RATIO 0.9 (1.1-1.5); ANION GAP 0 (8-16); ASPARTATE AMINO TRANSFERASE 18 U/L (10-37); BILIRUBIN,TOTAL 0.2 MG/DL (0.1-1.0); BLOOD UREA NITROGEN 101 MG/DL (7-18); BUN/CREATININE RATIO 59.4 (5.4-32.0); CALCIUM 8.6 MG/DL (8.5-10.1); CHLORIDE 99 MMOL/L (99-107); GLUCOSE 221 MG/DL (70-104); POTASSIUM 5.3 MMOL/L (3.5-5.1); SODIUM 139 MMOL/L (135-145); TOTAL CARBON DIOXIDE 39.6 MMOL/L (24-32); TOTAL PROTEIN 5.8 G/DL (6.4-8.2); eGFR 39 ML/MIN
[2021-07-16 11:00] VITALS: BP 147/50
[2021-07-16] MEDS ORDERED: sodium polystyrene sulfonate 15gm/60ml oral suspension PO ONE (12:55)
[2021-07-16 15:00] VITALS: BP 152/55
[2021-07-16] MEDS: insulin glargine (Lantus) pen - multi-dose SQ SCH (21:00)
[2021-07-16] MEDS: terazosin 5mg capsule PO SCH (22:21)
[2021-07-17] MEDS: albuterol 2.5 MG/3 ML nebule NEB SCH ×6 (02:40→23:06)
[2021-07-17 06:23] LABS: BASOPHILS % (AUTO) 0.1 % (0-1); EOSINOPHILS # (AUTO) 0.1 X10'3 (0-0.9); EOSINOPHILS % (AUTO) 1.5 % (0-6); HEMATOCRIT 26.4 % (42.0-52.0); HEMOGLOBIN 8.6 g/dl (14.0-17.9); LYMPHOCYTES # (AUTO) 1.4 X10'3 (1.1-4.8); LYMPHOCYTES % (AUTO) 19.5 % (21-51); MEAN CORPUSCULAR HEMOGLOBIN 27.3 PG (27.0-31.0); MEAN CORPUSCULAR HGB CONC 32.3 g/dL (33.0-36.5); MEAN CORPUSCULAR VOLUME 84.3 FL (78-98); MONOCYTES # (AUTO) 0.5 X10'3 (0-0.9); MONOCYTES % (AUTO) 7.3 % (2-12); NEUTROPHILS # (AUTO) 5.1 X10'3 (1.8-7.7); NEUTROPHILS % (AUTO) 71.6 % (42-75); PLATELET COUNT 137 X10'3 (140-440); RED BLOOD COUNT 3.13 X10'6 (4.70-6.10); RED CELL DISTRIBUTION WIDTH 17.7 % (11.5-14.5); WHITE BLOOD COUNT 7.1 X10'3 (4.5-11.0)
[2021-07-17 06:30] LABS: ALBUMIN 2.6 G/DL (3.4-5.0); ANION GAP -3 (8-16); BLOOD UREA NITROGEN 91 MG/DL (7-18); BUN/CREATININE RATIO 61.9 (5.4-32.0); CALCIUM 8.6 MG/DL (8.5-10.1); CHLORIDE 103 MMOL/L (99-107); CREATININE 1.47 MG/DL (0.60-1.10); GLUCOSE 93 MG/DL (70-104); POTASSIUM 4.5 MMOL/L (3.5-5.1); SODIUM 144 MMOL/L (135-145); eGFR 46 ML/MIN
[2021-07-17 06:35] LABS: TOTAL CARBON DIOXIDE 43.7 MMOL/L (24-32)
--- NOTE | 2021-07-17 07:00 | NUR ---
Pt Shay Coreas Rm 3020 CO2 43.7 Carl/RN 4560
[2021-07-17 07:15] VITALS: BP 127/46
[2021-07-17] MEDS: atenolol 50mg tablet PO SCH (08:00)
[2021-07-17] MEDS: K and/or MAG REPLACEMENT MC SCH ×2 (08:00→19:32)
[2021-07-17] MEDS: docusate sod 100mg capsule PO SCH ×2 (08:15→19:45)
[2021-07-17] MEDS: furosemide 20 MG/2 ML vial IV SCH (08:15)
[2021-07-17] MEDS: atorvastatin 10mg tablet PO SCH (08:16)
[2021-07-17] MEDS: aspirin 81mg, enteric-coated 1 TAB TABLET.DR PO SCH (08:16)
[2021-07-17] MEDS: amLODIPine 5mg tablet PO SCH (08:18)
[2021-07-17] MEDS: lisinopril 20mg tablet PO SCH (08:19)
[2021-07-17] MEDS: nystatin 15 GM powder TP SCH ×3 (08:20→21:24)
[2021-07-17] MEDS: enoxaparin 40mg/0.4ml syringe SUBCUT SCH (08:20)
[2021-07-17] MEDS: dexamethasone inj 6 MG in dextrose 5%-water 100 ML IV SCH ×2 (08:26→19:45)
[2021-07-17 08:58] LABS: ABG BASE EXCESS 14.2 mmol/L (-2.0-2.0); ABG HCO3 39.6 mmol/L (22.0-26.0); ABG OXYGEN SATURATION 89.2 % (94-97); ABG PCO2 (T) 55.2 mmHg (35.0-48.0); ABG PO2 (T) 58.1 mmHg (75.0-100.0); ALLEN'S TEST POSITIVE; FCOHb 0.3 % (0.0-3.9); FLOW 4 L/min; FMetHb 0.2 % (0.0-1.5); FO2Hb 88.8 % (94-97); TOTAL HEMOGLOBIN 9.9 G/dl (14.0-18.0)
--- NOTE | 2021-07-17 10:36 | NUR ---
Held atenolol for HR 55. Dr. Plasencia was notified.
[2021-07-17 11:00] VITALS: BP 119/48
[2021-07-17] MEDS: lactose-reduced food (Ensure Enlive) - 237ml bottle PO SCH ×3 (13:00→18:00)
[2021-07-17 15:00] VITALS: BP 144/46
[2021-07-17] MEDS: insulin Lispro (HumaLOG) vial - multi-dose SQ SCH ×3 (15:15→21:14)
[2021-07-17 18:00] VITALS: BP 157/62
--- NOTE | 2021-07-17 18:33 | NUR ---
Problems reprioritized. Patient report given, questions answered & plan of care reviewed with Brian/RN.
[2021-07-17] MEDS: terazosin 5mg capsule PO SCH (20:17)
[2021-07-17] MEDS: insulin glargine (Lantus) pen - multi-dose SQ SCH (21:16)
[2021-07-17 22:00] VITALS: BP 112/45
[2021-07-18 02:00] VITALS: BP 142/58
[2021-07-18] MEDS: albuterol 2.5 MG/3 ML nebule NEB SCH ×6 (03:18→23:24)
[2021-07-18 06:00] VITALS: BP 145/45
[2021-07-18 06:31] LABS: BASOPHILS % (AUTO) 0 % (0-1); EOSINOPHILS % (AUTO) 0 % (0-6); HEMATOCRIT 27.2 % (42.0-52.0); HEMOGLOBIN 8.8 g/dl (14.0-17.9); LYMPHOCYTES # (AUTO) 0.5 X10'3 (1.1-4.8); LYMPHOCYTES % (AUTO) 7.7 % (21-51); MEAN CORPUSCULAR HEMOGLOBIN 27.3 PG (27.0-31.0); MEAN CORPUSCULAR HGB CONC 32.2 g/dL (33.0-36.5); MEAN CORPUSCULAR VOLUME 84.6 FL (78-98); MEAN PLATELET VOLUME 9.9 FL (7.4-10.4); MONOCYTES # (AUTO) 0.3 X10'3 (0-0.9); MONOCYTES % (AUTO) 3.9 % (2-12); NEUTROPHILS # (AUTO) 5.9 X10'3 (1.8-7.7); NEUTROPHILS % (AUTO) 88.4 % (42-75); PLATELET COUNT 141 X10'3 (140-440); RED BLOOD COUNT 3.21 X10'6 (4.70-6.10); RED CELL DISTRIBUTION WIDTH 17.9 % (11.5-14.5); WHITE BLOOD COUNT 6.6 X10'3 (4.5-11.0)
[2021-07-18 06:39] LABS: ALBUMIN 2.6 G/DL (3.4-5.0); ANION GAP 1 (8-16); BLOOD UREA NITROGEN 83 MG/DL (7-18); BUN/CREATININE RATIO 59.3 (5.4-32.0); CALCIUM 8.3 MG/DL (8.5-10.1); CHLORIDE 106 MMOL/L (99-107); GLUCOSE 123 MG/DL (70-104); POTASSIUM 4.3 MMOL/L (3.5-5.1); SODIUM 146 MMOL/L (135-145); TOTAL CARBON DIOXIDE 39.5 MMOL/L (24-32); eGFR 49 ML/MIN
[2021-07-18] MEDS: K and/or MAG REPLACEMENT MC SCH ×2 (08:00→18:42)
[2021-07-18] MEDS: lactose-reduced food (Ensure Enlive) - 237ml bottle PO SCH ×2 (08:17→18:39)
[2021-07-18] MEDS: dexamethasone inj 6 MG in dextrose 5%-water 100 ML IV SCH (08:18)
[2021-07-18] MEDS: furosemide 20 MG/2 ML vial IV SCH (08:18)
[2021-07-18] MEDS: docusate sod 100mg capsule PO SCH ×2 (08:22→18:43)
[2021-07-18] MEDS: aspirin 81mg, enteric-coated 1 TAB TABLET.DR PO SCH (08:23)
[2021-07-18] MEDS: atorvastatin 10mg tablet PO SCH (08:24)
[2021-07-18] MEDS: amLODIPine 5mg tablet PO SCH (08:30)
[2021-07-18] MEDS: atenolol 50mg tablet PO SCH (08:32)
[2021-07-18] MEDS: lisinopril 20mg tablet PO SCH (08:33)
[2021-07-18] MEDS: enoxaparin 40mg/0.4ml syringe SUBCUT SCH (08:36)
[2021-07-18] MEDS: nystatin 15 GM powder TP SCH ×3 (08:36→21:23)
[2021-07-18] MEDS: insulin Lispro (HumaLOG) vial - multi-dose SQ SCH ×3 (10:59→21:19)
[2021-07-18 11:00] VITALS: BP 139/53
[2021-07-18 15:28] VITALS: BP 121/41
[2021-07-18] MEDS ORDERED: DEXTROSE 15 GM of carb/4 tabs (each vial/BOTTLE has 4 tablets) PO PRN ×2 (15:55)
[2021-07-18] MEDS ORDERED: dextrose ORAL solution 15 GM/59 ML bottle PO PRN (15:55)
--- NOTE | 2021-07-18 18:31 | NUR ---
Problems reprioritized. Patient report given, questions answered & plan of care reviewed with Edwig.
[2021-07-18 18:35] VITALS: BP 107/57
[2021-07-18] MEDS: dexamethasone inj 6 MG in dextrose 5%-water 50ml 50 ML IV SCH (19:03)
[2021-07-18] MEDS: terazosin 5mg capsule PO SCH (21:14)
[2021-07-18] MEDS: insulin glargine (Lantus) pen - multi-dose SQ SCH (21:22)
[2021-07-18 22:00] VITALS: BP 124/45
[2021-07-19] VITALS (7 sets, daily range): BP systolic 117–138; BP diastolic 35–63
[2021-07-19] MEDS: albuterol 2.5 MG/3 ML nebule NEB SCH ×5 (03:45→23:06)
[2021-07-19 05:55] LABS: BASOPHILS % (AUTO) 0 % (0-1); EOSINOPHILS % (AUTO) 0 % (0-6); HEMATOCRIT 25.5 % (42.0-52.0); HEMOGLOBIN 8.3 g/dl (14.0-17.9); LYMPHOCYTES # (AUTO) 0.5 X10'3 (1.1-4.8); LYMPHOCYTES % (AUTO) 7.5 % (21-51); MEAN CORPUSCULAR HEMOGLOBIN 27.5 PG (27.0-31.0); MEAN CORPUSCULAR HGB CONC 32.6 g/dL (33.0-36.5); MEAN CORPUSCULAR VOLUME 84.4 FL (78-98); MEAN PLATELET VOLUME 10.2 FL (7.4-10.4); MONOCYTES # (AUTO) 0.3 X10'3 (0-0.9); MONOCYTES % (AUTO) 5.2 % (2-12); NEUTROPHILS # (AUTO) 5.8 X10'3 (1.8-7.7); NEUTROPHILS % (AUTO) 87.3 % (42-75); PLATELET COUNT 157 X10'3 (140-440); RED BLOOD COUNT 3.02 X10'6 (4.70-6.10); RED CELL DISTRIBUTION WIDTH 17.5 % (11.5-14.5); WHITE BLOOD COUNT 6.7 X10'3 (4.5-11.0)
[2021-07-19 06:10] LABS: ALBUMIN 2.5 G/DL (3.4-5.0); ANION GAP 3 (8-16); BLOOD UREA NITROGEN 80 MG/DL (7-18); BUN/CREATININE RATIO 57.1 (5.4-32.0); CALCIUM 8.3 MG/DL (8.5-10.1); CHLORIDE 103 MMOL/L (99-107); GLUCOSE 160 MG/DL (70-104); POTASSIUM 3.8 MMOL/L (3.5-5.1); SODIUM 145 MMOL/L (135-145); TOTAL CARBON DIOXIDE 39.2 MMOL/L (24-32); eGFR 49 ML/MIN
--- NOTE | 2021-07-19 06:42 | NUR ---
Problems reprioritized. Patient report given, questions answered & plan of care reviewed with PAU aGrcias.
[2021-07-19] MEDS: lactose-reduced food (Ensure Enlive) - 237ml bottle PO SCH ×2 (08:00→13:00)
[2021-07-19] MEDS: K and/or MAG REPLACEMENT MC SCH ×2 (08:00→19:36)
[2021-07-19] MEDS: lisinopril 20mg tablet PO SCH (09:02)
[2021-07-19] MEDS: aspirin 81mg, enteric-coated 1 TAB TABLET.DR PO SCH (09:02)
[2021-07-19] MEDS: docusate sod 100mg capsule PO SCH ×2 (09:03→19:38)
[2021-07-19] MEDS: atorvastatin 10mg tablet PO SCH (09:03)
[2021-07-19] MEDS: atenolol 50mg tablet PO SCH (09:03)
[2021-07-19] MEDS: furosemide 20 MG/2 ML vial IV SCH (09:04)
[2021-07-19] MEDS: amLODIPine 5mg tablet PO SCH (09:04)
[2021-07-19] MEDS: enoxaparin 40mg/0.4ml syringe SUBCUT SCH (09:05)
[2021-07-19] MEDS: dexamethasone inj 6 MG in dextrose 5%-water 50ml 50 ML IV SCH ×2 (09:05→19:38)
[2021-07-19] MEDS: nystatin 15 GM powder TP SCH ×3 (09:07→21:24)
[2021-07-19] MEDS: insulin Lispro (HumaLOG) vial - multi-dose SQ SCH (14:01)
--- NOTE | 2021-07-19 19:14 | NUR ---
Problems reprioritized. Patient report given, questions answered & plan of care reviewed with PAU Cuba.
[2021-07-19] MEDS: terazosin 5mg capsule PO SCH (21:20)
[2021-07-19] MEDS: insulin glargine (Lantus) pen - multi-dose SQ SCH (21:24)
[2021-07-20 02:00] VITALS: BP 136/61
[2021-07-20] MEDS: albuterol 2.5 MG/3 ML nebule NEB SCH ×6 (03:22→23:11)
[2021-07-20 06:00] VITALS: BP 146/52
[2021-07-20 06:54] LABS: BASOPHILS % (AUTO) 0.1 % (0-1); EOSINOPHILS % (AUTO) 0 % (0-6); HEMATOCRIT 28.2 % (42.0-52.0); LYMPHOCYTES # (AUTO) 0.6 X10'3 (1.1-4.8); LYMPHOCYTES % (AUTO) 10.9 % (21-51); MEAN CORPUSCULAR HEMOGLOBIN 27.3 PG (27.0-31.0); MEAN CORPUSCULAR HGB CONC 32.1 g/dL (33.0-36.5); MEAN CORPUSCULAR VOLUME 85.2 FL (78-98); MEAN PLATELET VOLUME 10.1 FL (7.4-10.4); MONOCYTES # (AUTO) 0.3 X10'3 (0-0.9); MONOCYTES % (AUTO) 5.1 % (2-12); NEUTROPHILS # (AUTO) 4.9 X10'3 (1.8-7.7); NEUTROPHILS % (AUTO) 83.9 % (42-75); PLATELET COUNT 149 X10'3 (140-440); RED BLOOD COUNT 3.31 X10'6 (4.70-6.10); RED CELL DISTRIBUTION WIDTH 17.6 % (11.5-14.5); WHITE BLOOD COUNT 5.9 X10'3 (4.5-11.0)
[2021-07-20 07:12] LABS: ALBUMIN 2.7 G/DL (3.4-5.0); ANION GAP 8 (8-16); BLOOD UREA NITROGEN 72 MG/DL (7-18); BUN/CREATININE RATIO 49.3 (5.4-32.0); CALCIUM 8.7 MG/DL (8.5-10.1); CHLORIDE 101 MMOL/L (99-107); CREATININE 1.46 MG/DL (0.60-1.10); GLUCOSE 253 MG/DL (70-104); SODIUM 145 MMOL/L (135-145); TOTAL CARBON DIOXIDE 35.9 MMOL/L (24-32); eGFR 47 ML/MIN
[2021-07-20] MEDS: docusate sod 100mg capsule PO SCH ×2 (08:24→20:00)
[2021-07-20] MEDS: enoxaparin 40mg/0.4ml syringe SUBCUT SCH (08:24)
[2021-07-20] MEDS: atenolol 50mg tablet PO SCH (08:25)
[2021-07-20] MEDS: lisinopril 20mg tablet PO SCH (08:25)
[2021-07-20] MEDS: amLODIPine 5mg tablet PO SCH (08:25)
[2021-07-20] MEDS: aspirin 81mg, enteric-coated 1 TAB TABLET.DR PO SCH (08:26)
[2021-07-20] MEDS: dexamethasone inj 6 MG in dextrose 5%-water 50ml 50 ML IV SCH ×2 (08:26→19:34)
[2021-07-20] MEDS: atorvastatin 10mg tablet PO SCH (08:26)
[2021-07-20] MEDS: furosemide 20 MG/2 ML vial IV SCH (08:26)
[2021-07-20] MEDS: nystatin 15 GM powder TP SCH ×3 (08:26→21:13)
[2021-07-20] MEDS: K and/or MAG REPLACEMENT MC SCH ×2 (08:27→20:00)
--- NOTE | 2021-07-20 09:00 | NUR ---
Reassessment: Pt changed to Carb Controlled diet 07/15, now w/ avg intake 37% x 12meals and 61% x 9 ONS which meets approximately 68% of est energy needs and 75% of est protein needs. Phos was still elevated last check on 07/10 while BUN and creatinine remain elevated. Consider liberalizing to Regular diet if PO remains low. Pt continues on BiPAP and needs minimal assistance w/ meals per documentation. LBM 07/18 receiving routine colace. Will continue to monitor. Recommendations: 1) Consider regular diet if PO remains low and utilize glycemic protocol for BG management; lipid panel WNL with A1c 6.6% 2) Ensure Enlive TIDWM 3) Routine bowel care 4) Weekly scaled weights Addendum: 07/20/21 at [address] Amended: Links added.
[2021-07-20] MEDS: insulin Lispro (HumaLOG) vial - multi-dose SQ SCH ×2 (09:38→13:57)
[2021-07-20 15:00] VITALS: BP_SYST 119; BP_SYST 140; BP_DIAS 46; BP_DIAS 47
[2021-07-20 18:00] VITALS: BP 136/51
--- NOTE | 2021-07-20 18:51 | NUR ---
Problems reprioritized. Patient report given, questions answered & plan of care reviewed with PAU Cuba.
[2021-07-20] MEDS: terazosin 5mg capsule PO SCH (21:01)
[2021-07-20] MEDS: insulin glargine (Lantus) pen - multi-dose SQ SCH (21:09)
[2021-07-20 22:00] VITALS: BP 133/54
[2021-07-21 02:00] VITALS: BP 130/55
[2021-07-21] MEDS: albuterol 2.5 MG/3 ML nebule NEB SCH ×3 (02:57→11:06)
[2021-07-21 06:00] VITALS: BP 143/38
[2021-07-21 06:01] LABS: BASOPHILS % (AUTO) 0.1 % (0-1); EOSINOPHILS % (AUTO) 0 % (0-6); HEMATOCRIT 26.7 % (42.0-52.0); HEMOGLOBIN 8.8 g/dl (14.0-17.9); LYMPHOCYTES # (AUTO) 0.4 X10'3 (1.1-4.8); MEAN CORPUSCULAR HGB CONC 32.8 g/dL (33.0-36.5); MEAN CORPUSCULAR VOLUME 84.9 FL (78-98); MONOCYTES # (AUTO) 0.2 X10'3 (0-0.9); RED BLOOD COUNT 3.15 X10'6 (4.70-6.10)
[2021-07-21 06:03] LABS: LYMPHOCYTES % (AUTO) 7.1 % (21-51); MEAN CORPUSCULAR HEMOGLOBIN 27.9 PG (27.0-31.0); MEAN PLATELET VOLUME 10.1 FL (7.4-10.4); MONOCYTES % (AUTO) 4.2 % (2-12); NEUTROPHILS # (AUTO) 4.7 X10'3 (1.8-7.7); NEUTROPHILS % (AUTO) 88.6 % (42-75); PLATELET COUNT 152 X10'3 (140-440); RED CELL DISTRIBUTION WIDTH 17.4 % (11.5-14.5); WHITE BLOOD COUNT 5.3 X10'3 (4.5-11.0)
[2021-07-21 06:38] LABS: ALBUMIN 2.6 G/DL (3.4-5.0); ANION GAP 6 (8-16); BLOOD UREA NITROGEN 69 MG/DL (7-18); CALCIUM 8.3 MG/DL (8.5-10.1); CHLORIDE 102 MMOL/L (99-107); CREATININE 1.38 MG/DL (0.60-1.10); GLUCOSE 273 MG/DL (70-104); POTASSIUM 3.7 MMOL/L (3.5-5.1); SODIUM 145 MMOL/L (135-145); TOTAL CARBON DIOXIDE 37.4 MMOL/L (24-32); eGFR 50 ML/MIN
[2021-07-21] MEDS: docusate sod 100mg capsule PO SCH (08:00)
[2021-07-21] MEDS: furosemide 20 MG/2 ML vial IV SCH (08:12)
[2021-07-21] MEDS: dexamethasone inj 6 MG in dextrose 5%-water 50ml 50 ML IV SCH (08:12)
[2021-07-21] MEDS: enoxaparin 40mg/0.4ml syringe SUBCUT SCH (08:12)
[2021-07-21] MEDS: atenolol 50mg tablet PO SCH (08:14)
[2021-07-21] MEDS: aspirin 81mg, enteric-coated 1 TAB TABLET.DR PO SCH (08:14)
[2021-07-21] MEDS: atorvastatin 10mg tablet PO SCH (08:15)
[2021-07-21] MEDS: lisinopril 20mg tablet PO SCH (08:15)
[2021-07-21] MEDS: amLODIPine 5mg tablet PO SCH (08:15)
[2021-07-21] MEDS: nystatin 15 GM powder TP SCH (08:17)
[2021-07-21] MEDS: K and/or MAG REPLACEMENT MC SCH (08:19)
[2021-07-21] MEDS: insulin Lispro (HumaLOG) vial - multi-dose SQ SCH (09:46)
[2021-07-21] MEDS ORDERED: LISI20TA28 PO (10:36)
[2021-07-21 11:00] VITALS: BP 106/43
--- NOTE | 2021-07-21 12:57 | NUR ---
Pt has been discharged. Iv and tele monitor removed. pt was picked up by [facility] ambulance service to get transported to [facility]. Report called to Kindra.
== END 2021-07-21 12:46 | DRG 177 ==
LOC: ER 13:25 → ED HOLD 17:49 → PCU 3S 23:01
PROVIDERS: ADMIT Family Medicine; ATTEND Family Medicine
PROC: 5A0935A Assistance with Respiratory Ventilation, Less than 24 Consecutive Hours, High Flow/Velocity Cannula (ICD-10-PCS; 2021-07-06)
PROC: 5A0935A Assistance with Respiratory Ventilation, Less than 24 Consecutive Hours, High Flow/Velocity Cannula (ICD-10-PCS; 2021-07-07)
PROC: 5A09357 Assistance with Respiratory Ventilation, Less than 24 Consecutive Hours, Continuous Positive Airway Pressure (ICD-10-PCS; principal; 2021-07-08)
PROC: 5A0935A Assistance with Respiratory Ventilation, Less than 24 Consecutive Hours, High Flow/Velocity Cannula (ICD-10-PCS; 2021-07-08)
PROC: 5A09357 Assistance with Respiratory Ventilation, Less than 24 Consecutive Hours, Continuous Positive Airway Pressure (ICD-10-PCS; 2021-07-09)
PROC: 5A0935A Assistance with Respiratory Ventilation, Less than 24 Consecutive Hours, High Flow/Velocity Cannula (ICD-10-PCS; 2021-07-09)
PROC: 5A09357 Assistance with Respiratory Ventilation, Less than 24 Consecutive Hours, Continuous Positive Airway Pressure (ICD-10-PCS; 2021-07-10)
PROC: 5A0935A Assistance with Respiratory Ventilation, Less than 24 Consecutive Hours, High Flow/Velocity Cannula (ICD-10-PCS; 2021-07-10)
PROC: 5A09357 Assistance with Respiratory Ventilation, Less than 24 Consecutive Hours, Continuous Positive Airway Pressure (ICD-10-PCS; 2021-07-11)
PROC: 5A0935A Assistance with Respiratory Ventilation, Less than 24 Consecutive Hours, High Flow/Velocity Cannula (ICD-10-PCS; 2021-07-11)
PROC: 5A09357 Assistance with Respiratory Ventilation, Less than 24 Consecutive Hours, Continuous Positive Airway Pressure (ICD-10-PCS; 2021-07-12)
PROC: 5A0945A Assistance with Respiratory Ventilation, 24-96 Consecutive Hours, High Flow/Velocity Cannula (ICD-10-PCS; 2021-07-12)
PROC: 5A09357 Assistance with Respiratory Ventilation, Less than 24 Consecutive Hours, Continuous Positive Airway Pressure (ICD-10-PCS; 2021-07-13)
PROC: 5A09357 Assistance with Respiratory Ventilation, Less than 24 Consecutive Hours, Continuous Positive Airway Pressure (ICD-10-PCS; 2021-07-14)
PROC: 5A0935A Assistance with Respiratory Ventilation, Less than 24 Consecutive Hours, High Flow/Velocity Cannula (ICD-10-PCS; 2021-07-14)
PROC: 5A09357 Assistance with Respiratory Ventilation, Less than 24 Consecutive Hours, Continuous Positive Airway Pressure (ICD-10-PCS; 2021-07-15)
PROC: 5A0935A Assistance with Respiratory Ventilation, Less than 24 Consecutive Hours, High Flow/Velocity Cannula (ICD-10-PCS; 2021-07-15)
PROC: 5A09357 Assistance with Respiratory Ventilation, Less than 24 Consecutive Hours, Continuous Positive Airway Pressure (ICD-10-PCS; 2021-07-16)
PROC: 5A0935A Assistance with Respiratory Ventilation, Less than 24 Consecutive Hours, High Flow/Velocity Cannula (ICD-10-PCS; 2021-07-16)
PROC: 5A09357 Assistance with Respiratory Ventilation, Less than 24 Consecutive Hours, Continuous Positive Airway Pressure (ICD-10-PCS; 2021-07-17)
PROC: 5A09357 Assistance with Respiratory Ventilation, Less than 24 Consecutive Hours, Continuous Positive Airway Pressure (ICD-10-PCS; 2021-07-18)
PROC: 5A09357 Assistance with Respiratory Ventilation, Less than 24 Consecutive Hours, Continuous Positive Airway Pressure (ICD-10-PCS; 2021-07-19)
PROC: 5A09357 Assistance with Respiratory Ventilation, Less than 24 Consecutive Hours, Continuous Positive Airway Pressure (ICD-10-PCS; 2021-07-20)
PROC: 5A09357 Assistance with Respiratory Ventilation, Less than 24 Consecutive Hours, Continuous Positive Airway Pressure (ICD-10-PCS; 2021-07-21)
DX: U07.1 COVID-19 (principal); J12.82 Pneumonia due to coronavirus disease 2019; J96.01 Acute respiratory failure with hypoxia; G93.41 Metabolic encephalopathy; J69.0 Pneumonitis due to inhalation of food and vomit; E43 Unspecified severe protein-calorie malnutrition; S42.211A Unspecified displaced fracture of surgical neck of right humerus, initial encounter for closed fracture; E87.4 Mixed disorder of acid-base balance; I13.0 Hypertensive heart and chronic kidney disease with heart failure and stage 1 through stage 4 chronic kidney disease, or unspecified chronic kidney disease; Z68.41 Body mass index [BMI] 40.0-44.9, adult; I69.351 Hemiplegia and hemiparesis following cerebral infarction affecting right dominant side; J44.0 Chronic obstructive pulmonary disease with (acute) lower respiratory infection; Z66 Do not resuscitate; E66.01 Morbid (severe) obesity due to excess calories; N40.0 Benign prostatic hyperplasia without lower urinary tract symptoms; E78.5 Hyperlipidemia, unspecified; D64.9 Anemia, unspecified; E11.22 Type 2 diabetes mellitus with diabetic chronic kidney disease; E78.00 Pure hypercholesterolemia, unspecified; E87.5 Hyperkalemia; I89.0 Lymphedema, not elsewhere classified; F03.90 Unspecified dementia, unspecified severity, without behavioral disturbance, psychotic disturbance, mood disturbance, and anxiety; I27.81 Cor pulmonale (chronic); I50.9 Heart failure, unspecified; N18.9 Chronic kidney disease, unspecified; Z74.01 Bed confinement status; Z79.82 Long term (current) use of aspirin; Z79.84 Long term (current) use of oral hypoglycemic drugs; Z79.899 Other long term (current) drug therapy; Z90.49 Acquired absence of other specified parts of digestive tract; S42.211D Unspecified displaced fracture of surgical neck of right humerus, subsequent encounter for fracture with routine healing
CPT/HCPCS: 36415; 36600; 71045; 73030; 73200; 80048; 80053; 80061; 81003; 82272; 82803; 82948; 83036; 83605; 83615; 83735; 83880; 84100; 84145; 84484; 85018; 85025; 85379; 85651; 86140; 87040; 87081; 87635; 93005; 93308; 94640; 94660; 94760; 96365; 97110; 97161; 97163; 97530; 99285; C9803; G0378; J0696; J1100; J1650; J1815; J1940; J7030; J7060; Q0163

== ENCOUNTER 2023-05-05 18:28 | Emergency (ER) | payer MEDICARE, MEDICAID ==
[~2023-05-05] VITALS: Ht 170.2 cm; Wt 114.0 kg
[~2023-05-05 18:28] MED LIST changes: -ALBU8.5H17 INH; -AMLO5TAB16 PO; +FURO40TA4 PO; -GLIM4TAB7 PO; +INSU100I31 SQ; +IPRA3AMP31 NEB; +LATA2.5D14 EACHEYE; -LISI40TA13 PO; -METF-1203 PO; +MUPI22OI30 TOP; +NOVLG SQ; +POTA-205 PO
[2023-05-05 21:39] VITALS: TEMP 98.9
[2023-05-05 22:47] LABS: RED CELL DISTRIBUTION WIDTH 16.2 % (11.5-14.5)
[2023-05-05 22:48] LABS: BASOPHILS # (AUTO) 0.1 X10'3 (0-0.2); BASOPHILS % (AUTO) 0.9 % (0-1); EOSINOPHILS # (AUTO) 0.1 X10'3 (0-0.9); EOSINOPHILS % (AUTO) 0.4 % (0-6); HEMATOCRIT 34.7 % (42.0-52.0); HEMOGLOBIN 11.5 g/dl (14.0-17.9); LYMPHOCYTES # (AUTO) 1.5 X10'3 (1.1-4.8); LYMPHOCYTES % (AUTO) 11.6 % (21-51); MEAN CORPUSCULAR HEMOGLOBIN 30.2 PG (27.0-31.0); MEAN CORPUSCULAR HGB CONC 33.2 g/dL (33.0-36.5); MEAN PLATELET VOLUME 8.2 FL (7.4-10.4); MONOCYTES # (AUTO) 0.7 X10'3 (0-0.9); MONOCYTES % (AUTO) 5.5 % (2-12); NEUTROPHILS # (AUTO) 10.4 X10'3 (1.8-7.7); NEUTROPHILS % (AUTO) 81.6 % (42-75); PLATELET COUNT 162 X10'3 (140-440); RED BLOOD COUNT 3.81 X10'6 (4.70-6.10); WHITE BLOOD COUNT 12.8 X10'3 (4.5-11.0)
[2023-05-05 23:01] LABS: ALANINE AMINOTRANSFERASE 30 U/L (12-78); ALBUMIN 2.9 G/DL (3.4-5.0); ALBUMIN/GLOBULIN RATIO 0.6 (1.1-1.5); ALKALINE PHOSPHATASE 110 IU/L (46-116); ANION GAP 5 (8-16); ASPARTATE AMINO TRANSFERASE 14 U/L (10-37); BILIRUBIN,TOTAL 0.5 MG/DL (0.1-1.0); BLOOD UREA NITROGEN 72 MG/DL (7-18); BUN/CREATININE RATIO 29.8 (10.0-20.0); CALCIUM 9.2 MG/DL (8.5-10.1); CHLORIDE 103 MMOL/L (99-107); CREATININE 2.42 MG/DL (0.60-1.10); GLUCOSE 215 MG/DL (70-104); SODIUM 140 MMOL/L (135-145); TOTAL CARBON DIOXIDE 32.2 MMOL/L (24-32); TOTAL PROTEIN 7.8 G/DL (6.4-8.2); eCRCL 23 ML/MIN; eGFR 26 ML/MIN
[2023-05-05] MEDS ORDERED: CefTRIAXone/D5W-Rocephin 1gm 50 ML IV ONE (23:20)
[2023-05-06 01:07] LABS: BILIRUBIN,URINE NEGATIVE (Neg); CLARITY,URINE CLOUDY (Clear); COLOR,URINE YELLOW (Yellow); GLUCOSE, URINE NEGATIVE (Neg); KETONES,URINE NEGATIVE (Neg); LEUKOCYTE ESTERASE ,URINE MODERATE (Neg); NITRITES, URINE NEGATIVE (Neg); OCCULT BLOOD,URINE MODERATE (Neg); PROTEIN,URINE TRACE mg/dl (Neg); UROBILINOGEN,URINE 0.2 E.U/dL (0.2-1.0)
[2023-05-06 01:17] LABS: UA COLLECTION TYPE STRAIGHT CATH
[2023-05-06 01:58] LABS: BACTERIA,URINE 4+ /HPF (Neg); MUCUS STRANDS NONE SEEN /LPF (Neg); SQUAMOUS EPITHELIAL CELL,UR FEW /LPF (FEW)
[2023-05-06 02:01] LABS: TRANSITIONAL EPI CELLS,URINE FEW /HPF; WBC,URINE TNTC /HPF (0-4)
[2023-05-06] MEDS ORDERED: CEPH250T PO (02:49)
[2023-05-06] MEDS ORDERED: CefTRIAXone/D5W-Rocephin 1gm 50 ML IV ONE (02:50)
[2023-05-06 04:21] VITALS: BP 147/65; PULSE 80; RESP 14; O2SAT 96
== END 2023-05-06 06:44 | disposition home or self-care (01) ==
LOC: ER 18:29
DX: R53.1 Weakness (principal); N39.0 Urinary tract infection, site not specified; E78.00 Pure hypercholesterolemia, unspecified; E11.22 Type 2 diabetes mellitus with diabetic chronic kidney disease; I12.9 Hypertensive chronic kidney disease with stage 1 through stage 4 chronic kidney disease, or unspecified chronic kidney disease; N18.9 Chronic kidney disease, unspecified; I25.2 Old myocardial infarction; Z90.49 Acquired absence of other specified parts of digestive tract; Z79.899 Other long term (current) drug therapy; Z79.82 Long term (current) use of aspirin
CPT/HCPCS: 36415; 71045; 80053; 81001; 83605; 83735; 84145; 85025; 87040; 87077; 87088; 87186; 93005; 96365; 96366; 99285; J0696; 96375; C1758

== ENCOUNTER 2023-09-09 07:29 | Inpatient (IN) | payer MEDICARE, MEDICAID ==
[~2023-09-09] VITALS: Ht 175.3 cm; Wt 115.0 kg
[2023-09-09] MEDS: normal saline 1000ML IV soln IV ONE (08:20)
[2023-09-09] MEDS: CefTRIAXone 2gm/D5W 50ml BAG 50 ML IV ONE (08:38)
[2023-09-09] MEDS: acetaminophen 325mg tablet PO STA (08:38)
[2023-09-09 09:01] LABS: BASOPHILS % (AUTO) 0.2 % (0-1); EOSINOPHILS # (AUTO) 0.1 X10'3 (0-0.9); EOSINOPHILS % (AUTO) 0.7 % (0-6); HEMATOCRIT 33.4 % (42.0-52.0); HEMOGLOBIN 10.9 g/dl (14.0-17.9); LYMPHOCYTES # (AUTO) 1.3 X10'3 (1.1-4.8); MEAN CORPUSCULAR HEMOGLOBIN 29.1 PG (27.0-31.0); MEAN CORPUSCULAR HGB CONC 32.7 g/dL (33.0-36.5); MEAN CORPUSCULAR VOLUME 89.1 FL (78-98); MEAN PLATELET VOLUME 7.8 FL (7.4-10.4); MONOCYTES # (AUTO) 0.4 X10'3 (0-0.9); MONOCYTES % (AUTO) 2.4 % (2-12); NEUTROPHILS # (AUTO) 14.8 X10'3 (1.8-7.7); NEUTROPHILS % (AUTO) 88.7 % (42-75); PLATELET COUNT 228 X10'3 (140-440); RED BLOOD COUNT 3.75 X10'6 (4.70-6.10); RED CELL DISTRIBUTION WIDTH 14.7 % (11.5-14.5); WHITE BLOOD COUNT 16.7 X10'3 (4.5-11.0)
[2023-09-09 09:21] LABS: ALBUMIN 2.2 G/DL (3.4-5.0); ANION GAP 9 (8-16); CALCIUM 8.5 MG/DL (8.5-10.1); CHLORIDE 101 MMOL/L (99-107); CREATININE 2.59 MG/DL (0.60-1.10); GLUCOSE 114 MG/DL (70-104); MAGNESIUM 2.1 MG/DL (1.5-2.4); SODIUM 139 MMOL/L (135-145); TOTAL CARBON DIOXIDE 29.2 MMOL/L (24-32); eCRCL 23 ML/MIN; eGFR 24 ML/MIN
[2023-09-09 09:30] LABS: BLOOD UREA NITROGEN 56 MG/DL (7-18); BUN/CREATININE RATIO 21.6 (10.0-20.0)
[2023-09-09] MEDS: normal saline 1000ML IV soln IVB ONE (09:46)
[2023-09-09] MEDS ORDERED: magnesium 4gm in 100ml NS 100 ML IV PRN (11:05)
[2023-09-09] MEDS ORDERED: magnesium 2GM in 50ml NS 50 ML IV PRN (11:05)
[2023-09-09] MEDS ORDERED: ondansetron/PF 4mg/2ml inj IV PRN (11:05)
[2023-09-09] MEDS ORDERED: magnesium Cl slow-release 64mg tablet PO PRN (11:05)
[2023-09-09] MEDS ORDERED: potassium Cl 20 mEq SR tablet PO PRN ×2 (11:05)
[2023-09-09] MEDS ORDERED: acetaminophen 325mg tablet PO PRN ×2 (11:05)
[2023-09-09] MEDS ORDERED: potassium Cl 40MEQ/1/2NS 520ml 520 ML IV PRN (11:05)
[2023-09-09] MEDS: normal saline 1000ml 1,000 ML IV SCH (11:24)
[2023-09-09] MEDS ORDERED: glucagon, human recombinant 1mg kit SUBCUT PRN (11:25)
[2023-09-09] MEDS ORDERED: DEXTROSE 15 GM of carb/4 tabs (each vial/BOTTLE has 4 tablets) PO PRN ×2 (11:25)
[2023-09-09] MEDS ORDERED: dextrose 50%-water 50ml dispensing syringe IV PRN ×2 (11:25)
[2023-09-09] MEDS ORDERED: INSULIN LISPRO 100 UNIT/ML INSULN.PEN MULTI-DOSE SQ SCH (11:25)
[2023-09-09] MEDS: MESSAGE TO PHARMACY PO ONE (11:27)
[2023-09-09] MEDS: doxycycline inj 100 MG in normal saline 100ml IV soln 100 ML IV SCH (11:34)
[2023-09-09 11:54] LABS: BILIRUBIN,URINE NEGATIVE (Neg); CLARITY,URINE CLOUDY (Clear); COLOR,URINE YELLOW (Yellow); GLUCOSE, URINE NEGATIVE (Neg); KETONES,URINE NEGATIVE (Neg); LEUKOCYTE ESTERASE ,URINE LARGE (Neg); NITRITES, URINE NEGATIVE (Neg); OCCULT BLOOD,URINE SMALL (Neg); PROTEIN,URINE NEGATIVE (Neg); UROBILINOGEN,URINE 0.2 E.U/dL (0.2-1.0)
[2023-09-09 11:55] LABS: UA COLLECTION TYPE CLN CATCH MIDSTREAM
[2023-09-09 12:03] LABS: SQUAMOUS EPITHELIAL CELL,UR MODERATE /LPF (FEW)
[2023-09-09 12:04] LABS: BACTERIA,URINE 4+ /HPF (Neg); WBC,URINE TNTC /HPF (0-4)
[2023-09-09 12:05] LABS: RBC,URINE 0-2 /HPF (0-2)
[2023-09-09] MEDS: insulin glargine (Lantus) pen - multi-dose SQ SCH (21:00)
[2023-09-09] MEDS: heparin, porcine 5000 units/ml vial SQ SCH (21:03)
[2023-09-09] MEDS: vancomycin/NS 1 GM ADD-VANTAGE 250 ML X 1 DOSE IV ONE (22:00)
[2023-09-09] MEDS: albumin (Human) 5% 250ml 250 ML IV ONE (22:14)
[2023-09-09] MEDS: ringers solution, lacted 1,000 ML IV ONE (22:45)
[2023-09-09 23:30] VITALS: BP 120/33; PULSE 55; RESP 16; TEMP 97.3; O2SAT 96
[2023-09-10] VITALS (12 sets, daily range): BP systolic 103–155; BP diastolic 35–63; PULSE 43–67; RESP 16–22; TEMP 97–98; O2SAT 94–100
[2023-09-10] MEDS: albumin (Human) 5% 250ml 250 ML IV ONE (00:53)
[2023-09-10] MEDS ORDERED: DEXTROSE 15 GM of carb/4 tabs (each vial/BOTTLE has 4 tablets) PO PRN ×2 (01:05)
[2023-09-10] MEDS ORDERED: glucagon, human recombinant 1mg kit SUBCUT PRN (01:05)
[2023-09-10] MEDS ORDERED: dextrose 50%-water 50ml dispensing syringe IV PRN ×2 (01:05)
[2023-09-10] MEDS: vancomycin/NS 1 GM ADD-VANTAGE 250 ML X 1 DOSE IV ONE (03:03)
[2023-09-10 06:26] LABS: BASOPHILS % (AUTO) 0.5 % (0-1); EOSINOPHILS # (AUTO) 0.3 X10'3 (0-0.9); EOSINOPHILS % (AUTO) 3.7 % (0-6); HEMATOCRIT 29.4 % (42.0-52.0); HEMOGLOBIN 9.6 g/dl (14.0-17.9); LYMPHOCYTES # (AUTO) 1.4 X10'3 (1.1-4.8); LYMPHOCYTES % (AUTO) 16.7 % (21-51); MEAN CORPUSCULAR HEMOGLOBIN 29.7 PG (27.0-31.0); MEAN CORPUSCULAR HGB CONC 32.6 g/dL (33.0-36.5); MEAN CORPUSCULAR VOLUME 91.1 FL (78-98); MEAN PLATELET VOLUME 7.9 FL (7.4-10.4); MONOCYTES # (AUTO) 0.5 X10'3 (0-0.9); MONOCYTES % (AUTO) 5.5 % (2-12); NEUTROPHILS # (AUTO) 6.3 X10'3 (1.8-7.7); NEUTROPHILS % (AUTO) 73.6 % (42-75); PLATELET COUNT 162 X10'3 (140-440); RED BLOOD COUNT 3.23 X10'6 (4.70-6.10); RED CELL DISTRIBUTION WIDTH 14.9 % (11.5-14.5); WHITE BLOOD COUNT 8.5 X10'3 (4.5-11.0)
[2023-09-10 06:37] LABS: ALANINE AMINOTRANSFERASE 9 U/L (12-78); ALBUMIN 2.2 G/DL (3.4-5.0); ALBUMIN/GLOBULIN RATIO 0.6 (1.1-1.5); ALKALINE PHOSPHATASE 82 IU/L (46-116); ANION GAP 4 (8-16); ASPARTATE AMINO TRANSFERASE 10 U/L (10-37); BILIRUBIN,TOTAL 0.3 MG/DL (0.1-1.0); BLOOD UREA NITROGEN 48 MG/DL (7-18); CALCIUM 7.6 MG/DL (8.5-10.1); CHLORIDE 107 MMOL/L (99-107); CREATININE 2.09 MG/DL (0.60-1.10); GLUCOSE 80 MG/DL (70-104); POTASSIUM 3.4 MMOL/L (3.5-5.1); SODIUM 138 MMOL/L (135-145); TOTAL CARBON DIOXIDE 27.2 MMOL/L (24-32); TOTAL PROTEIN 6.2 G/DL (6.4-8.2); eCRCL 28 ML/MIN; eGFR 31 ML/MIN
[2023-09-10] MEDS: insulin Lispro (HumaLOG) vial - multi-dose SQ SCH ×3 (07:00→14:13)
[2023-09-10] MEDS: CefTRIAXone 2gm/D5W 50ml BAG 50 ML IV SCH (07:57)
[2023-09-10] MEDS: atorvastatin 10mg tablet PO SCH (17:20)
[2023-09-10] MEDS: lactose-reduced food (Ensure Enlive) - 237ml bottle PO SCH (18:00)
[2023-09-10] MEDS: terazosin 5mg capsule PO SCH (20:50)
[2023-09-10] MEDS: ipratropium/albuterol 3ml nebule NEB SCH (20:51)
[2023-09-10] MEDS: latanoprost 0.005% 2.5ml ophthalmic drops EACHEYE SCH (22:38)
[2023-09-10] MEDS ORDERED: vancomycin inj 500 MG in normal saline 100ml IV soln 100 ML IV SCH (23:00)
[2023-09-11] VITALS (13 sets, daily range): BP systolic 106–145; BP diastolic 42–94; PULSE 48–76; RESP 16–19; TEMP 97.4–98.2; O2SAT 95–100
[2023-09-11] MEDS: vancomycin/NS 1 GM ADD-VANTAGE 250 ML IV SCH (03:00)
[2023-09-11 05:37] LABS: BASOPHILS % (AUTO) 0.3 % (0-1); EOSINOPHILS # (AUTO) 0.3 X10'3 (0-0.9); EOSINOPHILS % (AUTO) 5.1 % (0-6); HEMATOCRIT 25.1 % (42.0-52.0); HEMOGLOBIN 8.4 g/dl (14.0-17.9); LYMPHOCYTES # (AUTO) 1.1 X10'3 (1.1-4.8); LYMPHOCYTES % (AUTO) 20.4 % (21-51); MEAN CORPUSCULAR HEMOGLOBIN 30.1 PG (27.0-31.0); MEAN CORPUSCULAR HGB CONC 33.6 g/dL (33.0-36.5); MEAN CORPUSCULAR VOLUME 89.5 FL (78-98); MEAN PLATELET VOLUME 7.8 FL (7.4-10.4); MONOCYTES # (AUTO) 0.2 X10'3 (0-0.9); MONOCYTES % (AUTO) 4.5 % (2-12); NEUTROPHILS # (AUTO) 3.7 X10'3 (1.8-7.7); NEUTROPHILS % (AUTO) 69.7 % (42-75); PLATELET COUNT 140 X10'3 (140-440); RED CELL DISTRIBUTION WIDTH 14.6 % (11.5-14.5); WHITE BLOOD COUNT 5.3 X10'3 (4.5-11.0)
[2023-09-11 05:57] LABS: ALANINE AMINOTRANSFERASE 13 U/L (12-78); ALBUMIN 1.9 G/DL (3.4-5.0); ALBUMIN/GLOBULIN RATIO 0.5 (1.1-1.5); ALKALINE PHOSPHATASE 78 IU/L (46-116); ANION GAP 8 (8-16); ASPARTATE AMINO TRANSFERASE 11 U/L (10-37); BILIRUBIN,TOTAL 0.3 MG/DL (0.1-1.0); BLOOD UREA NITROGEN 38 MG/DL (7-18); CALCIUM 7.6 MG/DL (8.5-10.1); CHLORIDE 112 MMOL/L (99-107); CREATININE 1.73 MG/DL (0.60-1.10); GLUCOSE 143 MG/DL (70-104); SODIUM 144 MMOL/L (135-145); TOTAL CARBON DIOXIDE 24.2 MMOL/L (24-32); TOTAL PROTEIN 5.7 G/DL (6.4-8.2); eCRCL 34 ML/MIN; eGFR 38 ML/MIN
[2023-09-11] MEDS ORDERED: atenolol 50mg tablet PO SCH (08:00)
[2023-09-11] MEDS: potassium chloride 10mEq ER tablet PO SCH (08:01)
[2023-09-11] MEDS: aspirin 81mg, enteric-coated 1 TAB TABLET.DR PO SCH (08:02)
[2023-09-11] MEDS: lactose-reduced food (Ensure Enlive) - 237ml bottle PO SCH (13:00)
[2023-09-11] MEDS: insulin Lispro (HumaLOG) vial - multi-dose SQ SCH (14:39)
[2023-09-11] MEDS: atenolol 50mg tablet PO SCH (15:26)
[2023-09-12] VITALS (12 sets, daily range): BP systolic 132–168; BP diastolic 51–78; PULSE 58–77; RESP 16–19; TEMP 96.8–97.6; O2SAT 94–96
[2023-09-12 05:58] LABS: BASOPHILS % (AUTO) 0.4 % (0-1); EOSINOPHILS # (AUTO) 0.3 X10'3 (0-0.9); EOSINOPHILS % (AUTO) 4.1 % (0-6); HEMATOCRIT 28.8 % (42.0-52.0); HEMOGLOBIN 9.6 g/dl (14.0-17.9); LYMPHOCYTES # (AUTO) 0.8 X10'3 (1.1-4.8); LYMPHOCYTES % (AUTO) 12.4 % (21-51); MEAN CORPUSCULAR HEMOGLOBIN 29.7 PG (27.0-31.0); MEAN CORPUSCULAR HGB CONC 33.3 g/dL (33.0-36.5); MEAN CORPUSCULAR VOLUME 89.1 FL (78-98); MEAN PLATELET VOLUME 7.8 FL (7.4-10.4); MONOCYTES # (AUTO) 0.2 X10'3 (0-0.9); MONOCYTES % (AUTO) 3.5 % (2-12); NEUTROPHILS # (AUTO) 5.4 X10'3 (1.8-7.7); NEUTROPHILS % (AUTO) 79.6 % (42-75); PLATELET COUNT 161 X10'3 (140-440); RED BLOOD COUNT 3.23 X10'6 (4.70-6.10); RED CELL DISTRIBUTION WIDTH 14.3 % (11.5-14.5); WHITE BLOOD COUNT 6.8 X10'3 (4.5-11.0)
[2023-09-12 06:17] LABS: ALANINE AMINOTRANSFERASE 15 U/L (12-78); ALBUMIN 1.9 G/DL (3.4-5.0); ALBUMIN/GLOBULIN RATIO 0.5 (1.1-1.5); ALKALINE PHOSPHATASE 98 IU/L (46-116); ANION GAP 6 (8-16); ASPARTATE AMINO TRANSFERASE 13 U/L (10-37); BILIRUBIN,TOTAL 0.1 MG/DL (0.1-1.0); BLOOD UREA NITROGEN 36 MG/DL (7-18); BUN/CREATININE RATIO 21.8 (10.0-20.0); CALCIUM 7.9 MG/DL (8.5-10.1); CHLORIDE 112 MMOL/L (99-107); CREATININE 1.65 MG/DL (0.60-1.10); GLUCOSE 208 MG/DL (70-104); POTASSIUM 4.6 MMOL/L (3.5-5.1); SODIUM 143 MMOL/L (135-145); TOTAL PROTEIN 5.9 G/DL (6.4-8.2); eCRCL 36 ML/MIN; eGFR 40 ML/MIN
[2023-09-12] MEDS: insulin glargine (Lantus) pen - multi-dose SQ ONE (20:18)
[2023-09-12] MEDS: MEROPENEM 1GM/NS 100ML IVPB 100 ML IV SCH (23:09)
[2023-09-13] VITALS (18 sets, daily range): BP systolic 105–208; BP diastolic 40–97; PULSE 66–81; RESP 16–25; TEMP 97.3–98.3; O2SAT 88–99
[2023-09-13] MEDS: furosemide 20 MG/2 ML vial IV ONE (01:35)
[2023-09-13] MEDS: hydrALAZINE 20mg/ml inj. IV ONE (01:36)
[2023-09-13] MEDS ORDERED: VANCOMYCIN LEVEL IV ONE (02:30)
[2023-09-13 07:09] LABS: ALANINE AMINOTRANSFERASE 19 U/L (12-78); ALBUMIN 2.1 G/DL (3.4-5.0); ALBUMIN/GLOBULIN RATIO 0.5 (1.1-1.5); ALKALINE PHOSPHATASE 93 IU/L (46-116); ANION GAP 8 (8-16); ASPARTATE AMINO TRANSFERASE 16 U/L (10-37); BILIRUBIN,TOTAL 0.2 MG/DL (0.1-1.0); BLOOD UREA NITROGEN 34 MG/DL (7-18); BUN/CREATININE RATIO 21.7 (10.0-20.0); CALCIUM 8.3 MG/DL (8.5-10.1); CHLORIDE 112 MMOL/L (99-107); CREATININE 1.57 MG/DL (0.60-1.10); GLUCOSE 223 MG/DL (70-104); POTASSIUM 4.6 MMOL/L (3.5-5.1); SODIUM 144 MMOL/L (135-145); TOTAL CARBON DIOXIDE 24.2 MMOL/L (24-32); TOTAL PROTEIN 6.2 G/DL (6.4-8.2); eCRCL 38 ML/MIN; eGFR 43 ML/MIN
[2023-09-13 07:16] LABS: BASOPHILS % (AUTO) 0.5 % (0-1); EOSINOPHILS # (AUTO) 0.1 X10'3 (0-0.9); HEMATOCRIT 30.7 % (42.0-52.0); HEMOGLOBIN 10.1 g/dl (14.0-17.9); LYMPHOCYTES # (AUTO) 0.9 X10'3 (1.1-4.8); MEAN CORPUSCULAR HEMOGLOBIN 29.4 PG (27.0-31.0); MEAN CORPUSCULAR HGB CONC 32.8 g/dL (33.0-36.5); MEAN CORPUSCULAR VOLUME 89.7 FL (78-98); MEAN PLATELET VOLUME 8.1 FL (7.4-10.4); MONOCYTES # (AUTO) 0.3 X10'3 (0-0.9); MONOCYTES % (AUTO) 3.6 % (2-12); NEUTROPHILS # (AUTO) 7.2 X10'3 (1.8-7.7); NEUTROPHILS % (AUTO) 83.9 % (42-75); PLATELET COUNT 164 X10'3 (140-440); RED BLOOD COUNT 3.42 X10'6 (4.70-6.10); RED CELL DISTRIBUTION WIDTH 14.9 % (11.5-14.5); WHITE BLOOD COUNT 8.5 X10'3 (4.5-11.0)
[2023-09-13] MEDS: methylPREDNISolone sod succ/PF 40mg inj. IV ONE (16:44)
[2023-09-13] MEDS: furosemide 40mg/4ml inj IV ONE (16:44)
[2023-09-13] MEDS: ipratropium/albuterol 3ml nebule NEB SCH (19:00)
[2023-09-13] MEDS ORDERED: methylPREDNISolone sod succ 125mg/2ml vial IV ONE (20:00)
[2023-09-13] MEDS: insulin glargine (Lantus) pen - multi-dose SQ SCH (20:25)
[2023-09-13] MEDS: methylPREDNISolone sod succ/PF 40mg inj. IV SCH (21:20)
[2023-09-13] MEDS: MEROPENEM 1GM/NS 100ML IVPB 100 ML IV SCH (21:25)
[2023-09-14] VITALS (16 sets, daily range): BP systolic 129–176; BP diastolic 47–73; PULSE 54–82; RESP 16–23; TEMP 97–98.2; O2SAT 90–98
[2023-09-14 07:59] LABS: BASOPHILS % (AUTO) 0.2 % (0-1); EOSINOPHILS % (AUTO) 0 % (0-6); HEMATOCRIT 32.6 % (42.0-52.0); HEMOGLOBIN 10.8 g/dl (14.0-17.9); LYMPHOCYTES # (AUTO) 0.6 X10'3 (1.1-4.8); LYMPHOCYTES % (AUTO) 8.9 % (21-51); MEAN CORPUSCULAR HEMOGLOBIN 29.7 PG (27.0-31.0); MEAN CORPUSCULAR HGB CONC 33.2 g/dL (33.0-36.5); MEAN CORPUSCULAR VOLUME 89.6 FL (78-98); MEAN PLATELET VOLUME 7.9 FL (7.4-10.4); MONOCYTES % (AUTO) 0.7 % (2-12); NEUTROPHILS # (AUTO) 5.9 X10'3 (1.8-7.7); NEUTROPHILS % (AUTO) 90.2 % (42-75); PLATELET COUNT 151 X10'3 (140-440); RED BLOOD COUNT 3.64 X10'6 (4.70-6.10); RED CELL DISTRIBUTION WIDTH 14.8 % (11.5-14.5); WHITE BLOOD COUNT 6.5 X10'3 (4.5-11.0)
[2023-09-14 08:30] LABS: ALANINE AMINOTRANSFERASE 35 U/L (12-78); ALBUMIN 1.9 G/DL (3.4-5.0); ALBUMIN/GLOBULIN RATIO 0.4 (1.1-1.5); ALKALINE PHOSPHATASE 98 IU/L (46-116); ANION GAP 4 (8-16); ASPARTATE AMINO TRANSFERASE 25 U/L (10-37); BILIRUBIN,TOTAL 0.3 MG/DL (0.1-1.0); BLOOD UREA NITROGEN 40 MG/DL (7-18); BUN/CREATININE RATIO 23.8 (10.0-20.0); CALCIUM 8.6 MG/DL (8.5-10.1); CHLORIDE 110 MMOL/L (99-107); CREATININE 1.68 MG/DL (0.60-1.10); GLUCOSE 240 MG/DL (70-104); POTASSIUM 4.9 MMOL/L (3.5-5.1); SODIUM 141 MMOL/L (135-145); TOTAL CARBON DIOXIDE 27.5 MMOL/L (24-32); TOTAL PROTEIN 6.4 G/DL (6.4-8.2); eCRCL 35 ML/MIN; eGFR 40 ML/MIN
[2023-09-14] MEDS: ascorbic acid 500mg tablet PO SCH (09:33)
[2023-09-14] MEDS ORDERED: PERFLUTREN PROTEIN-A MICROSPHR (Optison) 0.22 MG/ML 3ML VIAL IV ONE (11:25)
[2023-09-14] MEDS: [UNRECOGNIZED DRUG - REMARK] PO SCH (18:16)
[2023-09-14] MEDS: insulin Lispro (HumaLOG) vial - multi-dose SQ ONE (21:03)
[2023-09-14] MEDS: insulin glargine (Lantus) pen - multi-dose SQ SCH (21:06)
[2023-09-15] VITALS (13 sets, daily range): BP systolic 113–168; BP diastolic 51–91; PULSE 58–71; RESP 12–20; TEMP 97.7–98.7; O2SAT 93–98
== END 2023-09-15 19:38 | disposition home health service (06) | DRG 871 ==
LOC: ER 07:30 → ED HOLD 11:05 → PCU 3S 23:30
PROVIDERS: ADMIT Internal Medicine; ATTEND Internal Medicine
DX: A41.9 Sepsis, unspecified organism (principal); N17.0 Acute kidney failure with tubular necrosis; N39.0 Urinary tract infection, site not specified; I13.0 Hypertensive heart and chronic kidney disease with heart failure and stage 1 through stage 4 chronic kidney disease, or unspecified chronic kidney disease; I50.32 Chronic diastolic (congestive) heart failure; I69.351 Hemiplegia and hemiparesis following cerebral infarction affecting right dominant side; L03.115 Cellulitis of right lower limb; J44.1 Chronic obstructive pulmonary disease with (acute) exacerbation; Z16.24 Resistance to multiple antibiotics; Z20.822 Contact with and (suspected) exposure to COVID-19; E78.00 Pure hypercholesterolemia, unspecified; L89.159 Pressure ulcer of sacral region, unspecified stage; D63.1 Anemia in chronic kidney disease; N40.0 Benign prostatic hyperplasia without lower urinary tract symptoms; Z66 Do not resuscitate; B96.20 Unspecified Escherichia coli [E. coli] as the cause of diseases classified elsewhere; F01.50 Vascular dementia, unspecified severity, without behavioral disturbance, psychotic disturbance, mood disturbance, and anxiety; N18.9 Chronic kidney disease, unspecified; E11.22 Type 2 diabetes mellitus with diabetic chronic kidney disease; Z79.82 Long term (current) use of aspirin; Z79.4 Long term (current) use of insulin; Z79.899 Other long term (current) drug therapy; Z74.01 Bed confinement status; Z90.49 Acquired absence of other specified parts of digestive tract
CPT/HCPCS: 36415; 71045; 80048; 80053; 81001; 82948; 83605; 83735; 84145; 85025; 87040; 87077; 87081; 87088; 87186; 87502; 87503; 87811; 93005; 93306; 94640; 94760; 97110; 97161; 97530; 97535; 99291; A6212; A6213; A6258; A6449; A6590; C1758; G0378; J0360; J0696; J1644; J1815; J1940; J2185; J2920; J3370; J3490; J7030; J7120; P9045